=== PATIENT | male | born 1935 | race Hispanic/Latino ===

== ENCOUNTER → 2017-12-25 | Outpatient (CLI) | payer MEDICARE ==
[~2017-12-25] MED LIST: ATORVASTATIN CA40 MG PO; AVODART0.5 MG PO; GLIPIZIDE XL10 MG PO; JANUVIA100 MG PO; LOW DOSE ASPIRI81 MG PO; METFORMIN HCL500 M1 PO; PANTOPRAZOLE SO40 MG PO; QUINAPRIL HCL40 MG PO
--- NOTE | 2017-12-25 11:16 | Diagnostic Imaging Report ---
PROCEDURE: Frontal and lateral views of the chest. COMPARISON: 05/23/2013 INDICATIONS: RENAL CARCINOMA FOLLOW UP FINDINGS: Lines/tubes: None. Lungs: The lungs are well inflated and clear. There is no evidence of pneumonia or pulmonary edema. Pleura: There is no pleural effusion or pneumothorax. Heart and mediastinum: The heart and the mediastinum are normal. Bones: No acute bony abnormality. Degenerative changes of the thoracic spine and shoulder joints. IMPRESSION: 1. No acute cardiopulmonary disease. Dictated by: Jesus Rodney M.D. on 12/25/2017 at 11:18 Electronically approved by: Jesus Rodney M.D. on 12/25/2017 at 11:18
--- NOTE | 2017-12-25 13:54 | Diagnostic Imaging Report ---
EXAM: Renal Ultrasound INDICATION: \S\RENAL CANCER COMPARISON: CT dated 03/30/2016 TECHNIQUE: Transverse and longitudinal images of the kidneys and bladder were obtained. FINDINGS: Right Kidney: Size: 11 cm Echogenicity: Normal Parenchymal thickness: Normal Collecting system: No hydronephrosis Stones: None Cyst/Mass: 1.9 x 1.5 x 1.6 cm inferior pole hypoechoic/anechoic lesion. Left Kidney: Surgically absent. Bladder: Unremarkable. Prostate is enlarged measuring 5.2 x 3.8 x 4.4 cm (46.3 cc). IMPRESSION: 1. 1.9 cm right inferior pole lesion is probably a cyst. However, part of this lesion shows low internal echogenicity. Recommend further evaluation with renal mass protocol CT or MRI. 2. Enlarged prostate gland. Signed by: Dr. Jesus Rodney MD on 12/25/2017 1:51 PM
== END ==
LOC: US 10:14
PROVIDERS: ATTEND Urology
DX: C64.2 Malignant neoplasm of left kidney, except renal pelvis (principal)
CPT/HCPCS: 71046; 76770

== ENCOUNTER → 2018-07-17 | Outpatient (CLI) | payer MEDICARE ==
--- NOTE | 2018-07-17 09:59 | Diagnostic Imaging Report ---
PROCEDURE: X-RAY CHEST, TWO VIEWS COMPARISON: 12/25/2017. INDICATIONS: CHECK UP FOR KIDNEY CANCER FINDINGS: Lungs are well-inflated. No focal airspace consolidation, pleural effusion, or pneumothorax. Symmetric nodular opacities project over the mid-lower lung zones. Stable cardiomediastinal contour with mild tortuosity of the thoracic aorta. No acute osseous abnormality. Degenerative disc changes of the thoracic spine. Degenerative changes of the acromioclavicular joints. CONCLUSION: Symmetric subcentimeter nodular opacities projecting over the mid-lower lung zones likely represent nipple shadows. In the setting of prior history of renal cell carcinoma, a repeat examination with nipple markers is suggested. Dictated by: Wilfredo Montes M.D. on 07/17/2018 at 10:09 Electronically approved by: Wilfredo Montes M.D. on 07/17/2018 at 10:09
--- NOTE | 2018-07-17 10:27 | Diagnostic Imaging Report ---
PROCEDURE:US RETROPERITONEAL ( KIDNEY ). COMPARISON:None. INDICATIONS:FOLLOW UP RENAL CANCER TECHNIQUE: Meng-scale and color sonographic images of the bilateral kidneys and bladder where obtained in transverse and longitudinal planes. FINDINGS: RIGHT KIDNEY: 11.8 cm, cortex 1.8 cm Cysts: 1.7 x 1.8 x 2.0 cm cystic anechoic, partially exophytic lesion in the interpolar region (previously measured 1.9 x 1.5 x 1.6 cm). Solid masses: None Stones: None Hydronephrosis: None Echogenicity: Normal LEFT KIDNEY: Absent. No echogenic tissue is noted in the left renal fossa. Bladder: No focal lesions. Right ureteral jet is identified. Prostate: 5.7 x 3.9 x 4.8 cm (estimated volume 57.6 mL). CONCLUSION: 1. Status post left nephrectomy, without sonographic evidence of residual or recurrent disease. 2. Stable 2.0 cm simple appearing cyst in the right interpolar region. 3. Enlarged prostate, likely due to BPH. Ephraim Price M.D. Dictated by: Ephraim Price M.D. on 07/17/2018 at 10:37 Electronically approved by: Ephraim Price M.D. on 07/17/2018 at 10:37
== END ==
LOC: US 08:27
PROVIDERS: ATTEND Urology
DX: C64.2 Malignant neoplasm of left kidney, except renal pelvis (principal)
CPT/HCPCS: 71046; 76770

== ENCOUNTER → 2019-05-06 | Outpatient (CLI) | payer MEDICARE ==
--- NOTE | 2019-05-06 10:26 | Diagnostic Imaging Report ---
EXAM: Renal Ultrasound INDICATION: ^[id number] ^[id number] ^CYST OF KIDNEY COMPARISON: Renal ultrasound of 12/25/2017 TECHNIQUE: Transverse and longitudinal images of the kidneys and bladder were obtained. FINDINGS: Right Kidney: Length: 11.7 cm Appearance: Normal echogenicity. Collecting system: No hydronephrosis Stones: None Cyst/Mass: 1.8 x 1.6 x 1.6 right midpole partially exophytic cyst with a peripheral nodular component posteriorly associated with minimal vascularity. Left Kidney: Status post left nephrectomy Bladder: No mass or calculi. Right ureteral jet seen. Prevoid volume estimate of 172.6 cc Enlarged prostate. 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 Further evaluation is recommended with renal mass protocol CT or MRI. Signed by: Carmine Albright MD on 05/06/2019 10:23 AM
--- NOTE | 2019-05-06 14:45 | Diagnostic Imaging Report ---
EXAM: CT Chest, Abdomen and Pelvis WITHOUT intravenous contrast INDICATION: Renal malignancy COMPARISON: Renal ultrasound of earlier the same day, renal ultrasound of 07/17/2018 TECHNIQUE: The chest, abdomen and pelvis were scanned utilizing a multidetector helical scanner from the thoracic inlet to the pubic symphysis without administration of IV contrast. Coronal and sagittal reformations were obtained. IV CONTRAST: None ORAL CONTRAST: Water COMPLICATIONS: None RADIATION DOSE: Total DLP: 903.4 mGy*cm Dose modulation, iterative reconstruction, and/or weight based adjustment of the mA/kV was utilized to reduce the radiation dose to as low as reasonably achievable. FINDINGS: LINES/ TUBES: None. LUNGS AND AIRWAYS: There are innumerable bilateral pulmonary nodules. The largest of these measure up 8 mm in the left upper lobe (series 4 image 39) and up to 12 mm at the right lung apex (series 4 image 18). There is mucus plugging of a dilated left lower lobe segmental bronchus (series 4 image 82 through 97). No focal pneumonia or pulmonary edema. PLEURA: No pleural effusion. No pneumothorax. HEART AND MEDIASTINUM: Punctate calcifications in both lobes of the thyroid without focal nodule. No supraclavicular or axillary lymphadenopathy. Prominent mediastinal lymph nodes measure up to 14 x 9 mm. No hilar lymphadenopathy. The heart is not enlarged. No pericardial effusion. Diffuse atherosclerotic calcifications involve the coronary arteries and aorta. HEPATOBILIARY: No definite focal liver lesion. Cholelithiasis without CT evidence of cholecystitis. SPLEEN: No splenomegaly. PANCREAS: No focal masses or ductal dilatation. ADRENALS: No adrenal nodules. KIDNEYS/URETERS: Status post left nephrectomy. There is prominent soft tissue density in the left retroperitoneum at the surgical site of the left renal vein, which may be postoperative however local recurrent disease could also have this appearance. Approximately 2 cm partially exophytic right middle pole hypodense lesion corresponds with the renal cyst with a soft tissue nodular component seen on the renal ultrasound of earlier the same day. PELVIC ORGANS/BLADDER: Unremarkable. PERITONEUM / RETROPERITONEUM: No free air or fluid. LYMPH NODES: No lymphadenopathy. VESSELS: Diffuse atherosclerotic calcifications of the nonaneurysmal abdominal aorta and major branches. GI TRACT: Severe sigmoid diverticulosis without CT evidence of diverticulitis. No abnormal bowel wall thickening. No bowel obstruction. Normal appendix. BONES AND SOFT TISSUES: No acute osseous injury. Degenerative changes of the visualized spine. No suspicious lytic or blastic lesions. IMPRESSION: Innumerable bilateral pulmonary nodules measuring up to 8 mm on the left and 12 mm on the right, highly concerning for metastatic disease. Prominent mediastinal lymph nodes measuring up to 14 x 9 mm do not meet size criteria for lymphadenopathy but are suspicious in the setting of presumed metastatic disease. Status post left nephrectomy. Prominent soft tissue density in the left retroperitoneum at the surgical site of the left renal vein may be postoperative however local recurrent disease could also have this appearance. Approximately 2 cm partially exophytic right middle pole hypodense kidney lesion corresponds with the cyst with a soft tissue nodular component seen on the renal ultrasound of earlier the same day. This lesion remains indeterminate and follow-up imaging is recommended with contrast-enhanced renal mass protocol CT or alternatively MRI. Severe sigmoid diverticulosis without CT evidence of diverticulitis. Cholelithiasis. Diffuse atherosclerotic calcifications including of the coronary arteries. Signed by: Carmine Albright MD on 05/06/2019 2:42 PM
== END ==
LOC: US 08:27
PROVIDERS: ATTEND Urology
DX: C64.2 Malignant neoplasm of left kidney, except renal pelvis (principal); N28.1 Cyst of kidney, acquired
CPT/HCPCS: 71250; 74176; 76770

== ENCOUNTER → 2019-06-24 | Outpatient (CLI) | payer MEDICARE ==
[~2019-06-24] MED LIST changes: +FENTANYL CITRATE/PF 100MCG/2 ML INJ ONE; +LIDOCAINE HCL 1% LOCAL INJ 20 ML VIAL ONE; +MIDAZOLAM HCL 2 MG/2 ML VIAL ONE; +SODIUM CHLORIDE 0.9% 500ML 0 ML ONE
[2019-06-24 09:09] LABS: BASOPHILS # (AUTO) 0.1 (0.0-0.1); BASOPHILS % 0.8 % (0.0-1.0); EOSINOPHILS # (AUTO) 0.3 (0.0-0.4); EOSINOPHILS % 3.6 % (0.0-6.0); HEMATOCRIT 23.9 % (38.2-49.6); HEMOGLOBIN 7.7 g/dL (14.0-18.0); LYMPHOCYTES % 12.4 % (18.0-39.1); MEAN CORPUSCULAR HEMOGLOBIN 30.4 pg (28-32); MEAN CORPUSCULAR HGB CONC 32.2 g/dL (31-35); MEAN CORPUSCULAR VOLUME 94.5 fL (81-99); MONOCYTES # (AUTO) 0.5 (0.2-0.8); MONOCYTES % 6.2 % (4.4-11.3); NEUTROPHILS # (AUTO) 5.9 (2.1-6.9); NEUTROPHILS % 76.4 % (38.7-80.0); PLATELET COUNT 278 x10e3/uL (140-360); RED BLOOD COUNT 2.53 x10e6/uL (4.3-5.7); RED CELL DISTRIBUTION WIDTH 15.1 % (11.7-14.4)
[2019-06-24 09:59] LABS: INR 1.06; PROTHROMBIN TIME 14.3 seconds (11.9-14.5)
--- NOTE | 2019-06-24 13:12 | Diagnostic Imaging Report ---
Portable chest. Medical history: Post lung biopsy. Comparison study: CT guided lung biopsy dated June 24, 2019. Findings: The cardiac size is unremarkable. A 3.8 x 3.6 cm opacity is seen in the left midlung, recently biopsied. No pleural effusion or post procedure pneumothorax are seen. Impression: No post procedure pneumothorax. Signed by: Kenyon Guerra MD on 06/24/2019 1:08 PM
--- NOTE | 2019-06-24 14:42 | Diagnostic Imaging Report ---
EXAMINATION: CHEST XRAY POST PROCEDURE INDICATION: Post procedure COMPARISON: CT-guided lung biopsy and chest radiograph of earlier the same day FINDINGS: LINES/TUBES:None LUNGS:The lungs are well-inflated. Unchanged left upper lobe post biopsy changes. Remaining small pulmonary nodules seen on prior chest CT are beyond the resolution of this chest radiograph. PLEURA:No pleural effusion or pneumothorax. MEDIASTINUM:The cardiomediastinal silhouette appears unchanged in size and shape. BONES/SOFT TISSUES:No acute osseous injury. ABDOMEN:No free air under the diaphragm. IMPRESSION: No pneumothorax status post left upper lobe lung biopsy. Signed by: Carmine Albright MD on 06/24/2019 2:38 PM
--- NOTE | 2019-06-24 16:14 | Diagnostic Imaging Report ---
PROCEDURE: CT-guided left upper lobe lung biopsy Procedural Personnel Attending physician(s): Carmine Albright MD Fellow physician(s): None Resident physician(s): None Advanced practice provider(s): None Pre-procedure diagnosis: Renal malignancy, lung nodules Post-procedure diagnosis: Same Indication: Lung nodules concerning for metastatic disease Previous biopsy of same target (QCDR): No Additional clinical history: None Complications: No immediate complications. IMPRESSION: CT-guided biopsy of left upper lobe lung nodule. Plan: Specimen(s) sent for evaluation. PROCEDURE SUMMARY: - Percutaneous CT-guided fine needle aspiration biopsy - Additional procedure(s): None PROCEDURE DETAILS: Pre-procedure Reference imaging for biopsy target: Chest CT 05/06/2019 Consent: Informed consent for the procedure including risks, benefits and alternatives was obtained and time-out was performed prior to the procedure. Preparation: The site was prepared and draped using maximal sterile barrier technique including cutaneous antisepsis. Anesthesia/sedation Level of anesthesia/sedation: Moderate sedation (conscious sedation) with versed and fentanyl Anesthesia/sedation administered by: Independent trained observer under attending supervision with continuous monitoring of the patient?s level of consciousness and physiologic status Total intra-service sedation time (minutes): 45 Imaging prior to biopsy The patient was positioned supine. Initial imaging was performed using noncontrast CT. Biopsy target: - Maximal diameter (cm): 0.8 - Location: left upper lobe Other findings: None Biopsy Local anesthesia was administered. Under CT guidance, the biopsy needle was advanced to the target and biopsy was performed. Coaxial needle: 19 gauge x 10cm Core samples were feasible due to the size of the lesion. Fine needle aspiration device: 22g Chiba Fine needle size: 22g x 15cm Number of FNA specimens: 3 On-site biopsy touch preparation: Yes Needle removal The biopsy needle was removed and a sterile dressing was applied. Tract embolization: None Imaging following biopsy Immediate post-biopsy imaging was performed using noncontrast CT. Post-biopsy imaging findings: Small parenchymal hemorrhage postbiopsy. No pneumothorax. Contrast Contrast agent: None Contrast volume (mL): [address] dose length product (mGy-cm): 2788.4 Additional Details Additional description of procedure: None Equipment details: None Specimens removed: Biopsy samples as detailed above Estimated blood loss (mL): Less than 10 Standardized report: [id number] Attestation Signer name: Carmine Albright MD I attest that I was present for the entire procedure. I reviewed the stored images and agree with the report as written. Signed by: Carmine Albright MD on 06/24/2019 4:11 PM
== END ==
LOC: CT 08:35
PROVIDERS: ATTEND Urology
DX: C64.2 Malignant neoplasm of left kidney, except renal pelvis (principal)
CPT/HCPCS: 10009; 32405; 36415; 71045; 85025; 85610; 85730; 88172; 88173; J2001; J2250; J3010; 88305; 88342; 99152; 99153; J7040

== ENCOUNTER 2019-09-13 14:16 | Observation (INO) | payer MEDICARE, OTHER ==
[~2019-09-13] VITALS: Ht 177.8 cm; Wt 78.0 kg
[~2019-09-13 14:16] MED LIST changes: +CALCITRIOL0.25 MCG PO; -FENTANYL CITRATE/PF 100MCG/2 ML INJ ONE; +FINASTERIDE5 MG PO; +FLOMAX0.4 MG PO; +FUROSEMIDE40 MG PO; -LIDOCAINE HCL 1% LOCAL INJ 20 ML VIAL ONE; -MIDAZOLAM HCL 2 MG/2 ML VIAL ONE; +NEXAVAR200 MG PO; +NIFEDIPINE10 MG PO; +SODIUM BICARBO650 MG PO; -SODIUM CHLORIDE 0.9% 500ML 0 ML ONE; +VELTASSA8.4 GM PO; +VICTOZA 3-0.6 MG/0.1 SQ
[2019-09-13] MEDS ORDERED: PANTOPRAZOLE 40 MG 10ML VIAL IV STA (15:26)
[2019-09-13 16:17] LABS: BASOPHILS % 0.7 % (0.0-1.0); EOSINOPHILS # (AUTO) 0.1 (0.0-0.4); LYMPHOCYTES # (AUTO) 0.5 (1.0-3.2); LYMPHOCYTES % 7.9 % (18.0-39.1); MEAN CORPUSCULAR HEMOGLOBIN 30.3 pg (28-32); MEAN CORPUSCULAR HGB CONC 31.3 g/dL (31-35); MEAN CORPUSCULAR VOLUME 96.6 fL (81-99); MONOCYTES # (AUTO) 0.4 (0.2-0.8); MONOCYTES % 6.7 % (4.4-11.3); NEUTROPHILS # (AUTO) 5.1 (2.1-6.9); PLATELET COUNT 307 x10e3/uL (140-360); RED BLOOD COUNT 2.08 x10e6/uL (4.3-5.7); RED CELL DISTRIBUTION WIDTH 19.5 % (11.7-14.4)
[2019-09-13 16:19] LABS: HEMATOCRIT 20.1 % (38.2-49.6); HEMOGLOBIN 6.3 g/dL (14.0-18.0)
[2019-09-13 16:24] LABS: INR 1.07; PROTHROMBIN TIME 14.6 seconds (11.9-14.5)
[2019-09-13 16:25] LABS: PARTIAL THROMBOPLASTIN TIME 40.4 seconds (23.8-35.5)
[2019-09-13] MEDS ORDERED: SODIUM CHLORIDE 0.9% 250ML 250 ML IV ONE (16:30)
[2019-09-13 16:33] LABS: ALBUMIN 2.2 g/dL (3.5-5.0); ALBUMIN/GLOBULIN RATIO 0.5 (0.8-2.0); ANION GAP 18.6 mmol/L (8-16); CREATININE, SERUM 2.41 mg/dL (0.72-1.25); POTASSIUM 3.6 mmol/L (3.5-5.1)
[2019-09-13] MEDS ORDERED: SODIUM CHLORIDE 0.9% 1000ML 1,000 ML IV SCH (18:22)
[2019-09-13] MEDS ORDERED: ONDANSETRON HCL INJ 2MG/ML 2ML 2 MG/ML VIAL IV PRN (18:30)
[2019-09-13 21:32] VITALS: BP_SYST 133; BP_SYST 153; BP_DIAS 61; BP_DIAS 67
[2019-09-13] MEDS ORDERED: SODIUM CHLORIDE 0.9% 250ML 250 ML ONE (22:27)
[2019-09-14] VITALS: BP 143/66
[2019-09-14 04:00] VITALS: BP 136/66
[2019-09-14 06:54] LABS: BASOPHILS # (AUTO) 0.1 (0.0-0.1); BASOPHILS % 0.9 % (0.0-1.0); EOSINOPHILS # (AUTO) 0.2 (0.0-0.4); EOSINOPHILS % 2.3 % (0.0-6.0); HEMATOCRIT 23.5 % (38.2-49.6); HEMOGLOBIN 7.3 g/dL (14.0-18.0); LYMPHOCYTES # (AUTO) 0.8 (1.0-3.2); LYMPHOCYTES % 11.8 % (18.0-39.1); MEAN CORPUSCULAR HEMOGLOBIN 28.6 pg (28-32); MEAN CORPUSCULAR HGB CONC 31.1 g/dL (31-35); MEAN CORPUSCULAR VOLUME 92.2 fL (81-99); MONOCYTES # (AUTO) 0.5 (0.2-0.8); MONOCYTES % 7.7 % (4.4-11.3); NEUTROPHILS # (AUTO) 5.1 (2.1-6.9); NEUTROPHILS % 76.5 % (38.7-80.0); PLATELET COUNT 257 x10e3/uL (140-360); RED BLOOD COUNT 2.55 x10e6/uL (4.3-5.7); RED CELL DISTRIBUTION WIDTH 20.1 % (11.7-14.4)
[2019-09-14 07:20] LABS: ALBUMIN 2.1 g/dL (3.5-5.0); ALBUMIN/GLOBULIN RATIO 0.5 (0.8-2.0); CALCIUM 7.7 mg/dL (8.4-10.2); CREATININE, SERUM 3.09 mg/dL (0.72-1.25)
[2019-09-14 07:57] LABS: ANION GAP 13.8 mmol/L (8-16)
[2019-09-14 08:05] LABS: POTASSIUM 2.8 mmol/L (3.5-5.1)
[2019-09-14 08:22] VITALS: BP 113/64
[2019-09-14 08:32] VITALS: BP 121/65
[2019-09-14] MEDS ORDERED: POTASSIUM CHLORIDE 20 MEQ TAB CR PO NR ×2 (10:15→12:00)
[2019-09-14 10:16] LABS: HEMATOCRIT 25.7 % (38.2-49.6); HEMOGLOBIN 8.2 g/dL (14.0-18.0)
[2019-09-14 12:03] VITALS: BP 130/72
[2019-09-14 15:42] LABS: ANION GAP 15.5 mmol/L (8-16); CALCIUM 7.8 mg/dL (8.4-10.2); CREATININE, SERUM 3.56 mg/dL (0.72-1.25); POTASSIUM 3.5 mmol/L (3.5-5.1)
[2019-09-14 17:06] VITALS: BP 137/74
[2019-09-14 18:59] LABS: % IRON SATURATION 24 % (15-50); IRON 34 ug/dL (65-175); TOTAL IRON BINDING CAPACITY 143 ug/dL (261-478); TRANSFERRIN 102 mg/dL (174-364)
--- NOTE | 2019-09-14 19:41 | History and Physical ---
PCP: Dr. Candido Celis. CHIEF COMPLAINT: Anemia. HISTORY OF PRESENT ILLNESS: This is an 84-year-old male with past medical history of hypertension, high cholesterol, diabetes, ESRD, lung cancer, and BPH, presented to the ER with complaints of fatigue due to anemia. He reports, was in dialysis yesterday and was noted to have low hemoglobin, so was advised to come to the ER for further workup. In the ER, his hemoglobin was 6.3. He denies any chest pain, shortness of breath, dizziness, hematemesis, abdominal pain, or melena. He reports he had similar episode about 2 weeks ago and had received blood transfusions and endoscopy done, which was unremarkable per the patient. He is admitted for further evaluation. PAST MEDICAL HISTORY: 1. Lung cancer, currently on treatment. 2. Hypertension. 3. High cholesterol. 4. Diabetes. 5. ESRD, on dialysis, Monday, Monday, and Monday. 6. BPH. PAST SURGICAL HISTORY: He reports nephrectomy. FAMILY MEDICAL HISTORY: Mother of liver cancer. Father had heart failure. SOCIAL HISTORY: He quit smoking 20 years ago and denies any alcohol or illicit drug use. ALLERGIES: HE HAS NO KNOWN DRUG ALLERGIES. REVIEW OF SYSTEMS: GENERAL: Fatigue. HEENT: No head trauma. LUNGS: No shortness of breath or cough. CARDIOVASCULAR: No chest pain. GI: No nausea, vomiting, melena, or hematemesis. NEUROLOGIC: Alert and oriented. No dizziness. MUSCULOSKELETAL: No edema. SKIN: No rash. PHYSICAL EXAMINATION: VITAL SIGNS: Temperature 97.2, pulse is 89, respirations 20, blood pressure 130/72, and pulse ox is 99% on room air. GENERAL: No acute distress. HEENT: Normocephalic and atraumatic. NECK: Supple and midline. LUNGS: Clear to auscultation. CARDIOVASCULAR: Regular rate and rhythm. GI: Soft and nontender. NEUROLOGIC: Alert, awake, and oriented x3. MUSCULOSKELETAL: Moves all extremities. SKIN: Dry. PSYCH: Calm. LABORATORY DATA: WBC 6.09, hemoglobin 6.3, now 8.2, hematocrit 20.1, now 25.7, and platelet 307. Sodium 141, potassium 3.6, BUN is 12, and creatinine is 2.4. AST 60, then 43, ALT 17 and then 15. Protein 6.9. PT 14.6, INR 1.07, and APTT 40.4. IMAGING: None. IMPRESSION: 1. [id number] anemia. Hemoglobin is 6.3 upon arrival. Transfused total of 2 units of PRBCs. Hemoglobin is 8.2. Had EGD 2 weeks ago, which was negative. We will check iron level and replace as needed. 2. Hypertension. We will resume home medication. 3. High cholesterol. On statin. 4. Diabetes. Sliding scale insulin. 5. End-stage renal disease, HD Monday, Monday, and Monday; had dialysis yesterday. 6. Lung cancer. Aware and following up with his oncologist. 7. Benign prostatic hypertrophy. On Flomax. 8. Hypokalemia. Replaced. 9. Deep vein thrombosis prophylaxis. SCDs. No chemical anticoagulation due to anemia. PLAN: To check iron levels and replace as needed. We will discharge home if continues to do well. Dictated by ROBLES Sanchez Charles Frederick MD MY/MODL /[id number]
[2019-09-14] MEDS ORDERED: SODIUM BICARBONATE 650 MG TAB PO SCH (21:00)
[2019-09-14] MEDS ORDERED: TAMSULOSIN HCL 0.4 MG CAP PO SCH (21:00)
[2019-09-14] MEDS ORDERED: NIFEDIPINE CR 30 MG TAB PO SCH (21:00)
--- NOTE | 2019-09-15 03:22 | Discharge Summary ---
PRIMARY CARE PROVIDER: Dr. Candido Celis FINAL DIAGNOSES: 1. Anemia. 2. Hypertension. 3. High cholesterol. 4. Diabetes type 2. 5. End-stage renal disease, on dialysis Monday, Monday, and Monday. 6. Lung cancer. 7. Benign prostatic hyperplasia. AUDIO EXPERIENCE EXPERT: None. PROCEDURE: Transfusion of 2 units of PRBCs, history per HPI. HOSPITAL COURSE: This is an 84-year-old male with past medical history of hypertension, high cholesterol, diabetes, ESRD, lung cancer, and BPH, presented due to anemia. Hemoglobin was 6.3 upon arrival. He was transfused 2 units of PRBCs. Had recent GI workup, but two weeks ago, EGD was negative. Hemoglobin post transfusion was 7.4 than 8.2 symptomatic. No chest pain, shortness of breath or dizziness. Vital signs stable, no complaints of abdominal pain or melena. We will discharge home to follow up with PCP in 1 to 2 weeks. PHYSICAL EXAMINATION: VITAL SIGNS: Temperature 97.2, pulse is 89, respirations 20, blood pressure 130/72, pulse ox 99% on room air. GENERAL: In no acute distress. HEENT: Normocephalic, atraumatic. NECK: Supple. LUNGS: Clear to auscultation. CARDIOVASCULAR: Regular rate and rhythm. GI: Soft and nontender. NEUROLOGIC: Alert, awake, and oriented x3. MUSCULOSKELETAL: Moves all extremities. SKIN: Dry. PSYCH: Calm. CONDITION AT DISCHARGE: Improved and stable. DISCHARGE MEDICATIONS: See medication reconciliation list. FOLLOWUP: Follow up with PCP and Nephrology next week. TIME SPENT: Total time spent 32 minutes. Dictated by ROBLES Sanchez Charles Frederick MD MY/MODL /[id number] cc: Candido Celis
[2019-09-15] MEDS ORDERED: PANTOPRAZOLE SOD 40 MG TABEC PO SCH (09:00)
[2019-09-15] MEDS ORDERED: METFORMIN HCL 500 MG TAB CR PO SCH (09:00)
== END 2019-09-14 18:27 | disposition home or self-care (01) ==
LOC: ER 14:16 → ERHOLD 18:27 → MED/SURG2 21:37
PROVIDERS: ADMIT Internal Medicine; ATTEND Internal Medicine
DX: D64.9 Anemia, unspecified (principal); I12.0 Hypertensive chronic kidney disease with stage 5 chronic kidney disease or end stage renal disease; E11.22 Type 2 diabetes mellitus with diabetic chronic kidney disease; N18.6 End stage renal disease; Z99.2 Dependence on renal dialysis; Z90.5 Acquired absence of kidney; Z85.528 Personal history of other malignant neoplasm of kidney; Z85.118 Personal history of other malignant neoplasm of bronchus and lung; E78.00 Pure hypercholesterolemia, unspecified; N40.0 Benign prostatic hyperplasia without lower urinary tract symptoms; E87.6 Hypokalemia; Z79.82 Long term (current) use of aspirin; Z79.84 Long term (current) use of oral hypoglycemic drugs
CPT/HCPCS: 36415; 80048; 80053; 82948; 83540; 84466; 85014; 85018; 85025; 85610; 85730; 86850; 86900; 86920; 99284; G0378; J7050; P9016

== ENCOUNTER 2019-09-20 19:29 | Inpatient (IN) | payer MEDICARE, OTHER ==
[~2019-09-20] VITALS: Ht 177.8 cm; Wt 76.7 kg
[2019-09-20] MEDS ORDERED: DIATRIZOATE MEGL/DIATRIZOA SOD 30 ML BTL PO ONE (20:29)
[2019-09-20] MEDS ORDERED: ACETAMINOPHEN 325 MG TAB PO ONE (20:30)
[2019-09-20 20:55] LABS: BASOPHILS % 0.3 % (0.0-1.0); EOSINOPHILS % 0.2 % (0.0-6.0); LYMPHOCYTES % 7.4 % (18.0-39.1); MEAN CORPUSCULAR HEMOGLOBIN 28.5 pg (28-32); MEAN CORPUSCULAR HGB CONC 30.7 g/dL (31-35); MEAN CORPUSCULAR VOLUME 92.7 fL (81-99); MONOCYTES # (AUTO) 0.9 (0.2-0.8); MONOCYTES % 6.8 % (4.4-11.3); NEUTROPHILS # (AUTO) 11.2 (2.1-6.9); NEUTROPHILS % 84.2 % (38.7-80.0); PLATELET COUNT 263 x10e3/uL (140-360); RED BLOOD COUNT 1.79 x10e6/uL (4.3-5.7)
--- NOTE | 2019-09-20 20:55 | NUR ---
ER MD AND PRIMARY RN NOTIFIED AND AWARE OF CRITICAL LAB VALUE: HGB 5.1, HCT 16.6.
[2019-09-20 20:56] LABS: HEMATOCRIT 16.6 % (38.2-49.6); HEMOGLOBIN 5.1 g/dL (14.0-18.0)
[2019-09-20 20:59] LABS: INR 1.08; PROTHROMBIN TIME 14.7 seconds (11.9-14.5)
[2019-09-20 21:09] LABS: ALBUMIN 2.2 g/dL (3.5-5.0); ALBUMIN/GLOBULIN RATIO 0.5 (0.8-2.0); ANION GAP 17.2 mmol/L (8-16); CALCIUM 8.1 mg/dL (8.4-10.2); CREATININE, SERUM 5.57 mg/dL (0.72-1.25); POTASSIUM 3.2 mmol/L (3.5-5.1)
[2019-09-20 21:10] LABS: AMYLASE 50 U/L (25-125); LIPASE 11 U/L (8-78)
[2019-09-20 21:16] LABS: CREATINE KINASE MB 1.7 ng/mL (0-5.0)
--- NOTE | 2019-09-20 22:43 | Diagnostic Imaging Report ---
EXAMINATION: CHEST SINGLE (PORTABLE) INDICATION: Short of breath COMPARISON: Chest x-ray 06/24/2019 FINDINGS: TUBES and LINES: Right IJ central venous catheter, tip in the low SVC. LUNGS/PLEURA: Bibasilar haziness. Prominent pulmonary vasculature. Mild prominence of interstitial pulmonary lung markings in the lung bases. Lungs are clear. No consolidations. No pneumothorax. HEART AND MEDIASTINUM: The cardiomediastinal silhouette is unremarkable. BONES AND SOFT TISSUES: Degenerative changes in the spine and shoulders. Soft tissues are unremarkable. UPPER ABDOMEN: No free air under the diaphragm. IMPRESSION: Bibasilar haziness can be due to atelectasis, pleural effusion or pneumonia. Pulmonary vascular congestion. Mild pulmonary interstitial edema is possible. Signed by: Samuel Foote DO on 09/20/2019 10:40 PM
[2019-09-20] MEDS ORDERED: SODIUM CHLORIDE 0.9% 250ML 250 ML IV ONE (22:45)
--- NOTE | 2019-09-20 23:15 | Diagnostic Imaging Report ---
EXAM: CT Abdomen and Pelvis WITHOUT contrast INDICATION: Diarrhea, abdominal pain , short of breath, weak, nausea COMPARISON: Chest abdomen pelvis CT 05/06/2019. TECHNIQUE: Abdomen and pelvis were scanned utilizing a multidetector helical scanner from the lung base to the pubic symphysis without administration of IV contrast. Absence of intravenous contrast decreases sensitivity for detection of focal lesions and vascular pathology. Coronal and sagittal reformations were obtained. Routine protocol was performed. IV CONTRAST: None ORAL CONTRAST: Gastrografin COMPLICATIONS: None RADIATION DOSE: Total DLP: 649 mGy*cm Estimated effective dose: (DLP x 0.015 x size factor) mSv CTDIvol has been reviewed. It is below the limits set by the Radiation Protocol Committee (RPC). Dose modulation, iterative reconstruction, and/or weight based adjustment of the mA/kV was utilized to reduce the radiation dose to as low as reasonably achievable. FINDINGS: LINES and TUBES: None. LOWER THORAX: Multiple subcentimeter solid nodules in the bilateral lower lungs. Triple vessel coronary artery calcific atherosclerosis. Low density blood flow within the left ventricular cavity. A subcarinal lymph node now measures 2 cm, was 1.3 cm on 05/06/2019. HEPATOBILIARY: No focal hepatic lesions. No biliary ductal dilation. GALLBLADDER: Tiny layering stones in the gallbladder lumen. No wall thickening. SPLEEN: No splenomegaly. PANCREAS: No focal masses or ductal dilatation. ADRENALS: No adrenal nodules KIDNEYS/URETERS: Right kidney: No hydronephrosis. No cystic or solid mass lesions. No stones. Left kidney removed. Extensive nodularity, stranding, and fluid in left nephrectomy bed as described below. GI TRACT: No abnormal distention, wall thickening, or evidence of bowel obstruction. There are diverticula within the colon without evidence of diverticulitis. Appendix is not clearly identified. There is however no fat stranding or adenopathy in the right lower quadrant to suggest appendicitis. PELVIC ORGANS/BLADDER: Unremarkable. LYMPH NODES: No lymphadenopathy. VESSELS: Unremarkable. PERITONEUM / RETROPERITONEUM: Extensive thick dense soft tissue stranding and nodularity in the left retroperitoneum extends from beneath the diaphragm to the pelvis. Large volume ascites measures greater than fluid density. BONES: Advanced degenerative changes in the spine. SOFT TISSUES: Mild anasarca. IMPRESSION: 1. Findings compatible with progression of widespread metastatic disease. Findings in the left retroperitoneum are compatible with hemorrhage and retroperitoneal carcinomatosis. Large volume dense ascites is concerning for malignant hemoperitoneum, as there is soft tissue dense nodularity along the right hepatic margin and the ascitic fluid is greater than simple fluid density. Worsening pulmonary metastatic disease and mediastinal adenopathy. 2. CT findings of anemia. 3. Advanced triple vessel coronary artery calcific atherosclerosis. Signed by: Samuel Foote DO on 09/20/2019 11:12 PM
[2019-09-20] MEDS: SODIUM CHLORIDE FLUSH 10 ML SYR INJ PRN (23:45)
[2019-09-21] VITALS (19 sets, daily range): BP systolic 132–159; BP diastolic 54–76
[2019-09-21] MEDS: SODIUM CHLORIDE FLUSH 10 ML SYR INJ PRN
[2019-09-21 08:57] LABS: HEMATOCRIT 23.4 % (38.2-49.6); HEMOGLOBIN 7.5 g/dL (14.0-18.0)
[2019-09-21] MEDS: SODIUM BICARBONATE 650 MG TAB PO SCH ×2 (09:00→20:22)
[2019-09-21] MEDS: PANTOPRAZOLE SOD 40 MG TABEC PO SCH (09:00)
[2019-09-21] MEDS ORDERED: DOCUSATE SODIUM 100 MG CAP PO SCH (09:00)
[2019-09-21] MEDS: DUTASTERIDE 0.5 MG CAP PO SCH (09:00)
[2019-09-21] MEDS ORDERED: MAGNESIUM HYDROXIDE 30 ML UDC PO PRN (09:00)
[2019-09-21] MEDS ORDERED: CALCITRIOL 0.25 MCG CAP PO SCH (09:00)
[2019-09-21 09:14] LABS: ANION GAP 17.6 mmol/L (8-16); BASOPHILS % 0.3 % (0.0-1.0); CALCIUM 7.9 mg/dL (8.4-10.2); CREATININE, SERUM 5.75 mg/dL (0.72-1.25); EOSINOPHILS # (AUTO) 0.1 (0.0-0.4); EOSINOPHILS % 0.5 % (0.0-6.0); LYMPHOCYTES # (AUTO) 0.9 (1.0-3.2); LYMPHOCYTES % 7.5 % (18.0-39.1); MEAN CORPUSCULAR HEMOGLOBIN 29.1 pg (28-32); MEAN CORPUSCULAR HGB CONC 31.8 g/dL (31-35); MEAN CORPUSCULAR VOLUME 91.7 fL (81-99); MONOCYTES # (AUTO) 0.7 (0.2-0.8); MONOCYTES % 5.8 % (4.4-11.3); NEUTROPHILS # (AUTO) 10.2 (2.1-6.9); NEUTROPHILS % 85.2 % (38.7-80.0); PLATELET COUNT 226 x10e3/uL (140-360); POTASSIUM 3.6 mmol/L (3.5-5.1); RED BLOOD COUNT 2.54 x10e6/uL (4.3-5.7); RED CELL DISTRIBUTION WIDTH 17.3 % (11.7-14.4)
[2019-09-21 09:28] LABS: CLARITY,URINE CLEAR (CLEAR); COLOR,URINE YELLOW (YELLOW); KETONES,URINE NEGATIVE (NEGATIVE); LEUKOCYTE ESTERASE ,URINE NEGATIVE (NEGATIVE); NITRITE,URINE NEGATIVE (NEGATIVE); PROTEIN,URINE DIPSTICK 3+ (NEGATIVE); URINE UROBILINOGEN 0.2 mg/dL (0.2 - 1)
[2019-09-21 09:29] LABS: BILIRUBIN,URINE NEGATIVE (NEGATIVE)
[2019-09-21 09:40] LABS: BACTERIA,URINE FEW /HPF; EPITHELIAL CELLS,URINE FEW /LPF; RBC,URINE 0-5 /HPF (0-5); WBC,URINE (MAN) 0-5 /HPF (0-5)
[2019-09-21] MEDS ORDERED: SODIUM CHLORIDE 0.9% 250ML 250 ML IV ONE (11:15)
--- NOTE | 2019-09-21 11:31 | NUR ---
Nutrition Screen Note RD Recommendation for Physician: Continue diet as ordered Plan of Care: RD following monitoring for tolerance and adequacy Nutrition reason for involvement: Primary diagnosis of ESRD/lung cancer Primary Diagnose(s):ESRD, Carcinoma of retroperitoneum, HD PMH: lung cancer, HTN, High cholesterol, T2DM, Nephrectomy, renal cancer Ht:70 in Wt:172 lbs BMI:24.7 kg/m2 IBW: [address] Assessment: Initial encounter with patient. Diet Hx: pt has no known food allergies. Pt with C/O of dry mouth and dysgeusia probably due to medications, and decreased appetite. Pt usually drinks Nepro once a day. RD discussed adding Nepro once daily with attending physician while he was rounding and he gave his approval. Pt with C/O diarrhea and some nausea. Pt is dentate and denies any difficulty chewing or swallowing with no significant wt changes. Pt is able to feed himself. Current Diet: 2000 Calorie ADA Malnutrition Evaluation (09/21/2019) The patient does not meet criteria for a specified degree of malnutrition at this time. Will re-evaluate at follow-up as appropriate. Diet Education Needs Assessment: Diet education not desired by Pt at this time. Nutrition Care Level: samantha Husain RD, LD, CNSC
[2019-09-21] MEDS ORDERED: DIPHENHYDRAMINE HCL INJ 25 MG in SODIUM CHLORIDE 0.9% 50ML 50 ML IV ONE (12:00)
[2019-09-21] MEDS ORDERED: FAMOTIDINE INJ 20 MG in SODIUM CHLORIDE 0.9% 50ML 50 ML IV ONE (12:00)
[2019-09-21] MEDS ORDERED: DEXAMETHASONE PHOS 10MG INJ 20 MG in SODIUM CHLORIDE 0.9% 50ML 50 ML IV ONE (12:30)
[2019-09-21] MEDS ORDERED: IRON DEXTRAN INJ 50 MG in SODIUM CHLORIDE 0.9% 100 ML IV ONE (13:00)
--- NOTE | 2019-09-21 14:24 | Diagnostic Imaging Report ---
Tagged-RBC GI Bleed Study Clinical information: 84-year-old male with severe anemia. Concern that patient may be bleeding into peritoneal cavity. Discussion: The patient's own red blood cells were labeled with 27.5 mCi of technetium-99m pertechnetate using the in vitro method (UltraTag). Dynamic images of the abdomen were obtained through 60 minutes. Extensive collateral vessels are seen throughout the abdomen, however, no tracer is seen to transit from the blood pool into the gastrointestinal lumen or into the peritoneal cavity. Impression: No scan evidence of a gastrointestinal bleed or of bleeding into the peritoneal cavity at this time. Signed by: Dr. Blank Alexandra M.D. on 09/21/2019 2:21 PM
--- NOTE | 2019-09-21 15:59 | Consultation ---
DATE OF CONSULTATION: Critical Care Note HISTORY OF PRESENT ILLNESS: The patient of Dr. Charles Frederick, Dr. Celis, Dr. Shah, Dr. Kyle, Dr. Manjarrez, Dr. Mcneil. 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 History of peptic ulcer disease in the past. He had an episode of bloody stool a year ago. He has a history of hypertension, diabetes, end-stage renal disease, on dialysis since July of 2019. ALLERGIES: NO KNOWN ALLERGIES. SOCIAL HISTORY: Drank socially. Smoked in the past. He has had a left nephrectomy in 2017 at [facility]. 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 FAMILY HISTORY: Positive for liver cancer in mother. Coronary artery disease, strokes and diabetes. Born in [place], [place]. PHYSICAL EXAMINATION: VITAL SIGNS: Elderly white male, looking stated age. HEAD: Normocephalic, atraumatic. NECK: Trachea midline. LUNGS: Clear. HEART: Regular rhythm. ABDOMEN: There is apparent ascites. EXTREMITIES: Nonedematous. AV fistula in left upper extremity. LABORATORY DATA: Hemoglobin was 5.1. 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 PLAN: Oncology opinion, transfusion. Continue red cell scan. [place] is grim. We will call to Dr. Frederick and Dr. Manjarrez. Vital signs have now improved, he was shocky on admission, now 98, respirations 18, blood pressure 141/59. At midnight, his blood pressure was 100/50, improved with fluid and 2 units of red cells. We will repeat hemoglobin and coagulation screening. Thank you for this kind referral. MD LUI Cerda/MODL /[id number]
[2019-09-21 16:24] LABS: BASOPHILS % 0.2 % (0.0-1.0); EOSINOPHILS % 0.2 % (0.0-6.0); HEMATOCRIT 24.7 % (38.2-49.6); HEMOGLOBIN 7.8 g/dL (14.0-18.0); LYMPHOCYTES # (AUTO) 0.9 (1.0-3.2); LYMPHOCYTES % 7.6 % (18.0-39.1); MEAN CORPUSCULAR HEMOGLOBIN 29.2 pg (28-32); MEAN CORPUSCULAR HGB CONC 31.6 g/dL (31-35); MEAN CORPUSCULAR VOLUME 92.5 fL (81-99); MONOCYTES # (AUTO) 0.6 (0.2-0.8); MONOCYTES % 4.9 % (4.4-11.3); NEUTROPHILS # (AUTO) 10.8 (2.1-6.9); NEUTROPHILS % 86.5 % (38.7-80.0); PLATELET COUNT 234 x10e3/uL (140-360); RED BLOOD COUNT 2.67 x10e6/uL (4.3-5.7); RED CELL DISTRIBUTION WIDTH 17.6 % (11.7-14.4)
[2019-09-21] MEDS ORDERED: HEPARIN SOD (PORCINE) 1000 UNIT/ML SDV ONE (18:40)
[2019-09-21] MEDS ORDERED: SODIUM CHLORIDE 0.9% 1000ML 2,000 ML ONE (18:41)
[2019-09-21] MEDS ORDERED: SODIUM CHLORIDE 0.9% 250ML 250 ML ONE (20:11)
[2019-09-21] MEDS: TAMSULOSIN HCL 0.4 MG CAP PO SCH (20:21)
[2019-09-22] VITALS (14 sets, daily range): BP systolic 88–141; BP diastolic 51–78
[2019-09-22] MEDS: IRON DEXTRAN INJ 500 MG in SODIUM CHLORIDE 0.9% 500ML 500 ML IV PRN ×2 (06:09→13:00)
[2019-09-22 06:30] LABS: BASOPHILS % 0.1 % (0.0-1.0); HEMATOCRIT 29.4 % (38.2-49.6); HEMOGLOBIN 9.4 g/dL (14.0-18.0); LYMPHOCYTES # (AUTO) 0.4 (1.0-3.2); LYMPHOCYTES % 4.5 % (18.0-39.1); MEAN CORPUSCULAR HEMOGLOBIN 29.3 pg (28-32); MEAN CORPUSCULAR VOLUME 91.6 fL (81-99); MONOCYTES # (AUTO) 0.2 (0.2-0.8); MONOCYTES % 1.6 % (4.4-11.3); NEUTROPHILS % 93.4 % (38.7-80.0); PLATELET COUNT 223 x10e3/uL (140-360); RED BLOOD COUNT 3.21 x10e6/uL (4.3-5.7); RED CELL DISTRIBUTION WIDTH 16.6 % (11.7-14.4)
[2019-09-22 06:34] LABS: INR 1.05; PROTHROMBIN TIME 14.3 seconds (11.9-14.5)
[2019-09-22 06:35] LABS: PARTIAL THROMBOPLASTIN TIME 49.5 seconds (23.8-35.5)
[2019-09-22 06:47] LABS: ALBUMIN/GLOBULIN RATIO 0.5 (0.8-2.0); ANION GAP 15.6 mmol/L (8-16); CALCIUM 7.9 mg/dL (8.4-10.2); CREATININE, SERUM 3.39 mg/dL (0.72-1.25); POTASSIUM 3.6 mmol/L (3.5-5.1)
[2019-09-22] MEDS: PANTOPRAZOLE SOD 40 MG TABEC PO SCH (08:30)
[2019-09-22] MEDS: SODIUM BICARBONATE 650 MG TAB PO SCH ×2 (08:30→21:28)
[2019-09-22] MEDS: DUTASTERIDE 0.5 MG CAP PO SCH (08:30)
[2019-09-22] MEDS: CALCITRIOL 0.25 MCG CAP PO SCH (09:41)
[2019-09-22] MEDS ORDERED: LOPERAMIDE2 MG PO (13:56)
[2019-09-22] MEDS ORDERED: LOPERAMIDE HCL 2 MG CAP PO PRN (14:00)
[2019-09-22] MEDS: TAMSULOSIN HCL 0.4 MG CAP PO SCH (21:28)
[2019-09-23] VITALS (8 sets, daily range): BP systolic 101–123; BP diastolic 55–60
[2019-09-23 05:54] LABS: BASOPHILS % 0.2 % (0.0-1.0); EOSINOPHILS % 0.4 % (0.0-6.0); HEMATOCRIT 26.7 % (38.2-49.6); HEMOGLOBIN 8.6 g/dL (14.0-18.0); LYMPHOCYTES % 10.5 % (18.0-39.1); MEAN CORPUSCULAR HEMOGLOBIN 29.8 pg (28-32); MEAN CORPUSCULAR HGB CONC 32.2 g/dL (31-35); MEAN CORPUSCULAR VOLUME 92.4 fL (81-99); MONOCYTES # (AUTO) 0.6 (0.2-0.8); MONOCYTES % 6.4 % (4.4-11.3); NEUTROPHILS # (AUTO) 7.4 (2.1-6.9); NEUTROPHILS % 82.1 % (38.7-80.0); PLATELET COUNT 223 x10e3/uL (140-360); RED BLOOD COUNT 2.89 x10e6/uL (4.3-5.7); RED CELL DISTRIBUTION WIDTH 17.2 % (11.7-14.4)
[2019-09-23 06:53] LABS: ANION GAP 14.4 mmol/L (8-16); CALCIUM 7.7 mg/dL (8.4-10.2); CREATININE, SERUM 4.47 mg/dL (0.72-1.25); MAGNESIUM 1.8 MG/DL (1.3-2.1); POTASSIUM 3.4 mmol/L (3.5-5.1)
[2019-09-23] MEDS: PANTOPRAZOLE SOD 40 MG TABEC PO SCH (07:41)
[2019-09-23] MEDS: CALCITRIOL 0.25 MCG CAP PO SCH (08:10)
[2019-09-23] MEDS: SODIUM BICARBONATE 650 MG TAB PO SCH ×2 (08:10→22:10)
[2019-09-23] MEDS: DUTASTERIDE 0.5 MG CAP PO SCH (08:10)
--- NOTE | 2019-09-23 11:45 | Progress Note ---
DATE: 09/23/2019 CONSULTANTS: 1. Dr. Jaylen Mcneil with Surgery. 2. Dr. Lesia Manjarrez with Hematology. 3. Dr. Chris Shah with Nephrology. 4. Dr. Craig with Urology. 5. Dr. Fontaine with [employer]. CHIEF COMPLAINT: Abdominal pain with ESRD and renal cancer. SUBJECTIVE: The patient is resting in bed with no acute disease. Remains in ICU, pending transfer out of ICU. He reports he is eating well, abdominal pain, resolved, no chest pain, shortness of breath, nausea or vomiting. OBJECTIVE: VITAL SIGNS: Temperature 96.4, pulse is 89, respirations 16, blood pressure 115/58, pulse ox is 97% on room air. GENERAL: No acute distress. HEENT: Normocephalic, atraumatic. NECK: Supple. LUNGS: Clear to auscultation. CARDIOVASCULAR: Regular rate and rhythm. GI: Soft, nontender, nondistended. NEURO: Alert, awake, oriented x3. MUSCULOSKELETAL: Moves all extremities. SKIN: Dry and intact. PSYCH: Calm. LABORATORY DATA: WBC 9.0, hemoglobin 8.6, hematocrit 26.7, and platelet is 223. Sodium 138, potassium 3.4, BUN is 36, creatinine is 4.47, estimated GFR is 13, calcium is 7.7. IMPRESSION: 1. Acute blood loss anemia due to renal cell carcinoma with metastasis to peritoneum. Status post blood transfusion. Hematology on the case. GI bleed scan was negative. Hemoglobin is stable at 8.6 today. We will continue to monitor closely. 2. End-stage renal disease. Hemodialysis per Nephrology. Monday, Monday, and Monday. 3. Diabetes. Diet controlled. 4. Benign prostatic hyperplasia. Continue Flomax. 5. History of renal cancer. Continue Avodart per oncologist. 6. Deep venous thrombosis prophylaxis. No chemical anticoagulation due to anemia. PLAN: Plan is to continue monitoring H and H and transfer out of ICU. Dictated by ROBLES Sanchez Charles Frederick MD MY/MODL /[id number]
--- NOTE | 2019-09-23 11:55 | NUR ---
Received patient from ICU. Respiration even and unlabored without SOB. Call light in reach. Family members at bedside. Denies pain at this time. Right subclavian catheter in placed, intact.
[2019-09-23] MEDS ORDERED: SODIUM CHLORIDE 0.9% 1000ML 2,000 ML ONE (16:07)
[2019-09-23] MEDS ORDERED: HEPARIN SOD (PORCINE) 1000 UNIT/ML SDV IV PRN (16:30)
[2019-09-23] MEDS ORDERED: SODIUM CHLORIDE 0.9% 250ML 500 ML IV PRN (16:30)
[2019-09-23] MEDS ORDERED: MANNITOL 25% 12.5GM/50 ML VIAL IV PRN (16:30)
[2019-09-23] MEDS ORDERED: ALBUMIN 25% 12.5GM 0.25 GM/ML BTL IV PRN (16:30)
[2019-09-23] MEDS ORDERED: SODIUM CHLORIDE 0.9% 1000ML 2,000 ML IV PRN (16:30)
--- NOTE | 2019-09-23 19:05 | NUR ---
Report given to pipefitter. Patient is currently on dialysis at this time. Awake, alert, respiration even and unlabored without SOB. Family at bedside. Call light in reach.
--- NOTE | 2019-09-23 22:00 | NUR ---
PATIENT IN STABLE CONDITION, NO SIGNS OF DISTRESS NOTED. PATIENT IS DONE WITH HEMODIALYSIS AND HAS HAD 2 LITERS REMOVED. PATIENT VOICES PAIN IN LOWER BACK AT A LEVEL OF 7 AND WILL BE MEDICATED ORDERED. VENELEX BANDAGE IS CLEAN AND INTACT ON SACRUM. BED IS IN LOW POSITION, BOTH SIDE RAILS ARE UP, CALL LIGHT WITHIN EASY REACH, WILL CONTINUE TO MONITOR.
[2019-09-23] MEDS: TAMSULOSIN HCL 0.4 MG CAP PO SCH (22:10)
[2019-09-23] MEDS: HYDROCODONE/APAP 5MG-325MG TAB PO PRN (22:42)
[2019-09-24] VITALS (7 sets, daily range): BP systolic 110–132; BP diastolic 55–59
[2019-09-24 05:57] LABS: BASOPHILS % 0.3 % (0.0-1.0); EOSINOPHILS % 0.4 % (0.0-6.0); HEMATOCRIT 26.8 % (38.2-49.6); HEMOGLOBIN 8.3 g/dL (14.0-18.0); LYMPHOCYTES # (AUTO) 0.9 (1.0-3.2); MEAN CORPUSCULAR VOLUME 93.7 fL (81-99); MONOCYTES # (AUTO) 0.6 (0.2-0.8); MONOCYTES % 6.2 % (4.4-11.3); NEUTROPHILS # (AUTO) 7.4 (2.1-6.9); NEUTROPHILS % 82.3 % (38.7-80.0); PLATELET COUNT 212 x10e3/uL (140-360); RED BLOOD COUNT 2.86 x10e6/uL (4.3-5.7); RED CELL DISTRIBUTION WIDTH 17.3 % (11.7-14.4)
[2019-09-24] MEDS: HYDROCODONE/APAP 5MG-325MG TAB PO PRN ×2 (06:03→20:00)
[2019-09-24] MEDS: PANTOPRAZOLE SOD 40 MG TABEC PO SCH (07:09)
[2019-09-24] MEDS: DUTASTERIDE 0.5 MG CAP PO SCH (09:21)
[2019-09-24] MEDS: SODIUM BICARBONATE 650 MG TAB PO SCH ×2 (09:21→20:00)
[2019-09-24] MEDS ORDERED: CEPHALEXIN MONOHYDRATE 250 MG CAP PO SCH (09:30)
[2019-09-24] MEDS: CALCITRIOL 0.25 MCG CAP PO SCH (09:53)
--- NOTE | 2019-09-24 11:30 | Diagnostic Imaging Report ---
EXAM: US ABDOMEN COMPLETE DATE: 09/24/2019 12:00 AM INDICATION: Hemoperitoneum COMPARISON: CT abdomen and pelvis of 09/20/2019 TECHNIQUE: Transverse and longitudinal ang scale and color doppler sonographic images of the upper abdomen were obtained. FINDINGS: LIVER 11.9 cm in the right midclavicular line. Normal echogenicity of the liver with normal contour, no masses. SPLEEN Not visualized. GALLBLADDER Sludge and stones in the gallbladder. No gallbladder wall thickening, pericholecystic fluid, or gallbladder distention. Negative sonographic Faust's sign. The gallbladder wall measures 2 mm. BILE DUCTS No intra nor extra-hepatic biliary dilation. Common bile duct measures 4 mm PANCREAS: Visualized portions are normal. RIGHT KIDNEY: 10.2 cm Echogenicity: Normal Collecting System: No hydronephrosis Stones: None Cyst/Mass: None LEFT KIDNEY: Left nephrectomy. VESSELS: Aorta: Visualized portions are within normal size limits Inferior Vena Cava: Visualized portions are normal Main Portal Vein: 0.7 cm, normal size with hepatopetal flow. FREE FLUID: Small volume ascites with echogenic debris. IMPRESSION: Small volume complex ascites with echogenic debris may represent hemoperitoneum versus malignant ascites. Cholelithiasis without sonographic evidence of cholecystitis. Signed by: Carmine Albright MD on 09/24/2019 11:27 AM
--- NOTE | 2019-09-24 13:48 | Consultation ---
DATE OF CONSULTATION: 09/21/2019 HISTORY OF PRESENT ILLNESS: An 84-year-old gentleman known to our Nephrology Service, presented with generalized weakness, has been requiring packed RBC transfusions. Has history of prior nephrectomy for renal cell carcinoma, prior history of tobacco addiction, history of lung cancer, history of hypertension, diabetes, end-stage renal disease, prostate enlargement and history of hyperlipidemia. He has had prior GI bleed, had endoscopies done. Dr. Kyle saw him back in August. He is on a Monday, Monday, Monday schedule. He presented in the ER yesterday with quite weak, relatively hypotensive. Hemoglobin is 5.1, was transfused with 3 units of packed RBC. He is scheduled for another 2 units of packed RBC transfusion and dialysis today. PHYSICAL EXAMINATION: GENERAL: He is currently awake, alert, oriented, lying supine in no apparent distress. VITAL SIGNS: Has a blood pressure of 141/59, pulse rate 89, afebrile. HEAD AND NECK: Cornea clear. Oral mucosa moist. LUNGS: Relatively clear. No rales. HEART: S1 and S2 audible. ABDOMEN: Otherwise soft, nontender. No deep palpation done. EXTREMITIES: Lower extremity examination shows no edema. IMAGING: Workup included CT abdomen, please see official report. It is remarkable for progression of widespread metastatic disease in the left retroperitoneum and findings suggestive of hemorrhage with retroperitoneal carcinomatosis, worsening pulmonary metastatic disease and mediastinal adenopathy. LABORATORY TEST: Shows potassium level of 3.6, creatinine 5.7, hemoglobin 7.5, underlying end-stage renal disease, retroperitoneal bleed, consequent anemia. PLAN: Hemodialysis. No heparin. We will transfuse 2 units of packed RBC. Urology, General surgery to see. Overall, extremely poor prognosis. Blood pressure appears stable. DICTATION ENDS HERE. MD CAROL May/IRASEMA /[id number]
[2019-09-24] MEDS ORDERED: LEVOFLOXACIN 250MG/D5W 50ML 50 ML IV SCH (15:00)
--- NOTE | 2019-09-24 18:24 | Progress Note ---
DATE: 09/24/2019 CONSULTANTS: 1. Dr. Cruz with Hematology. 2. Dr. Shah with Nephrology. 3. Dr. Craig with Urology. CHIEF COMPLAINT: Abdominal pain and ESRD with renal cancer. SUBJECTIVE: The patient is transferred out of ICU, reports abdominal pain is improved. Noted abdominal ultrasound. Hemoglobin is 8.3, suddenly dropping. He denies any chest pain, shortness of breath, nausea, or vomiting. OBJECTIVE: VITAL SIGNS: Temperature 97.4, pulse is 91, respirations 18, blood pressure 132/58, pulse ox is 98% on room air. GENERAL: Fatigue. HEENT: Normocephalic, atraumatic. NECK: Supple. LUNGS: Clear to auscultation. CARDIOVASCULAR: Regular rate and rhythm. GI: Soft and nontender. Mildly distended. NEURO: Alert, awake, oriented x3. MUSCULOSKELETAL: Moves all extremities. SKIN: Dry. PSYCH: Calm. LABORATORY DATA: WBC 8.97, hemoglobin 8.3, hematocrit 26.8, platelets 212. IMAGING: Abdominal ultrasound shows small volume complex ascites with echogenic debris, may represent hemoperitoneum versus malignant ascites. ASSESSMENT: 1. Acute blood loss anemia due to renal cell carcinoma with metastasis to peritoneum. Status post 4 units of blood transfusions. Hemoglobin 8.3. We will continue to monitor closely. Oncologist on the case. 2. End-stage renal disease, on hemodialysis Monday, Monday, Monday per Nephrology. 3. Urinary tract infection. Urine culture positive for Escherichia coli with Enterococcus faecalis, started on Levaquin. 4. Diabetes. Diet controlled. 5. Benign prostatic hypertrophy. Continue Flomax. Urology is on the case. 6. History of renal cell carcinoma. Continue with Avodart per oncologist. 7. Deep venous thrombosis prophylaxis. No chemical anticoagulation due to anemia. PLAN: Plan is to continue monitoring H and H, dialysis planned for tomorrow. We will plan on transfusion if hemoglobin is less than 7. Dictated by ROBLES Sanchez Charles Frederick MD MY/MODL /[id number]
[2019-09-24] MEDS: TAMSULOSIN HCL 0.4 MG CAP PO SCH (20:00)
--- NOTE | 2019-09-24 20:00 | NUR ---
PATIENT IN STABLE CONDITION, NO SIGNS OF DISTRESS NOTED. PATIENT VOICES PAIN IN LOWER BACK AT A LEVEL OF 7 AND WAS MEDICATED ORDERED. VENELEX BANDAGE IS CLEAN AND INTACT ON SACRUM. PATIENT ALSO VOICED SATISFACTION WITH PADDED MATRESS. BED IS IN LOW POSITION, BOTH SIDE RAILS ARE UP, CALL LIGHT WITHIN EASY REACH, WILL CONTINUE TO MONITOR.
[2019-09-25] VITALS (8 sets, daily range): BP systolic 101–126; BP diastolic 55–61
[2019-09-25 05:48] LABS: BASOPHILS % 0.3 % (0.0-1.0); EOSINOPHILS # (AUTO) 0.1 (0.0-0.4); EOSINOPHILS % 0.8 % (0.0-6.0); HEMATOCRIT 25.9 % (38.2-49.6); LYMPHOCYTES % 10.2 % (18.0-39.1); MEAN CORPUSCULAR HEMOGLOBIN 29.5 pg (28-32); MEAN CORPUSCULAR HGB CONC 30.9 g/dL (31-35); MEAN CORPUSCULAR VOLUME 95.6 fL (81-99); MONOCYTES # (AUTO) 0.6 (0.2-0.8); MONOCYTES % 6.5 % (4.4-11.3); NEUTROPHILS # (AUTO) 7.8 (2.1-6.9); NEUTROPHILS % 81.3 % (38.7-80.0); PLATELET COUNT 206 x10e3/uL (140-360); RED BLOOD COUNT 2.71 x10e6/uL (4.3-5.7); RED CELL DISTRIBUTION WIDTH 17.7 % (11.7-14.4)
[2019-09-25] MEDS: PANTOPRAZOLE SOD 40 MG TABEC PO SCH (07:30)
[2019-09-25] MEDS: SODIUM BICARBONATE 650 MG TAB PO SCH ×2 (09:00→20:52)
[2019-09-25] MEDS: DUTASTERIDE 0.5 MG CAP PO SCH (09:00)
[2019-09-25] MEDS: CALCITRIOL 0.25 MCG CAP PO SCH (09:00)
[2019-09-25] MEDS ORDERED: SODIUM CHLORIDE 0.9% 250ML 250 ML IV ONE (09:30)
[2019-09-25] MEDS ORDERED: SODIUM CHLORIDE 0.9% IV SCH ×2 (11:00→12:00)
[2019-09-25] MEDS ORDERED: AMINOCAPROIC ACID IV SCH ×2 (11:00→12:00)
[2019-09-25 11:24] LABS: ANION GAP 13.9 mmol/L (8-16); CALCIUM 7.4 mg/dL (8.4-10.2); CREATININE, SERUM 4.65 mg/dL (0.72-1.25); POTASSIUM 3.9 mmol/L (3.5-5.1)
--- NOTE | 2019-09-25 12:17 | NUR ---
DIALYSIS IN PROGRESS, NO CHANGE IN CONDITION
[2019-09-25] MEDS ORDERED: SODIUM CHLORIDE 0.9% 250ML 250 ML ONE (16:33)
[2019-09-25] MEDS: AMINOCAPROIC ACID IV SCH ×2 (16:40→20:52)
[2019-09-25] MEDS: SODIUM CHLORIDE 0.9% IV SCH ×2 (16:40→20:52)
--- NOTE | 2019-09-25 19:13 | Progress Note ---
DATE: 09/25/2019 An 84-year-old male. CONSULTANTS: 1. Dr. Manjarrez with Hematology. 2. Dr. Shah with Nephrology. 3. Dr. Craig with Neurology. CHIEF COMPLAINT: Abdominal pain improved, acute blood-loss anemia due to RCC. SUBJECTIVE: The patient was seen in the room while HD was in progress. He received one more unit of PRBC. His hemoglobin was 8.0 this morning. He denies any chest pain, shortness of breath, nausea, vomiting, or abdominal pain. OBJECTIVE: VITAL SIGNS: Temperature 97.9, pulse is 109, respirations 20, blood pressure 126/58, pulse ox is 98% on room air. GENERAL: No acute distress. HEENT: Normocephalic, atraumatic. NECK: Supple. LUNGS: Clear to auscultation. CARDIOVASCULAR: Regular rate and rhythm. GI: Soft and nontender. Mildly distended. NEURO: Alert, awake, oriented x3. MUSCULOSKELETAL: Moves all extremities. SKIN: Dry. LABORATORY DATA: WBC 9.6, hemoglobin 8.0, hematocrit 25.9. Sodium 135, potassium 3.9. BUN 34, creatinine 4.65, calcium 7.4. ASSESSMENT: 1. Acute blood loss anemia due to renal cell carcinoma. Ultrasound noted, status post one more unit of blood with dialysis today. Oncologist on the case. 2. End-stage renal disease, on dialysis Monday, Monday, Monday per Nephrology. 3. Urinary tract infection. Urine positive for Escherichia coli with Enterococcus faecalis. Continue on Levaquin. 4. Diabetes. Diet controlled. 5. Benign prostatic hyperplasia. Continue Flomax. Urology is on the case. 6. History of renal cell carcinoma. Continue Avodart per oncologist. May consider further workup and change of medication outpatient. 7. Deep venous thrombosis prophylaxis. No chemical anticoagulation due to anemia. PLAN: Plan is to continue to monitor hemoglobin. Aminocaproic acid IV given q.4. Home once cleared by Hematology. Dictated by ROBLES Sanchez Laceyching Jase Frederick MD MY/MODL /[id number] Seen and examined on 09/25/19. Agree with the findings and plan as documented by ROBLES Reagan. KIRIT
--- NOTE | 2019-09-25 19:57 | NUR ---
RECEIVED BEDSIDE SHIFT REPORT FROM PREVIOUS NURSE. CALL LIGHT WITHIN REACH. PATIENT IN BED. DAUGHTER AT BEDSIDE Addendum: 09/26/19 at 0557 by Tati Lloyd RN CHANGE TIME TO 1900
--- NOTE | 2019-09-25 20:21 | NUR ---
CALLED AND TALKED TO DR. CLINE ABOUT THE PATIENT'S FINGERSTICK/ACHS BEING 300 AND NO SLIDING SCALE OR MEDICATION IS WRITTEN FOR THE ELEVATED SUGAR. DR. CLINE ORDERED LOW DOSE SLIDING SCALE OF HUMALOG FOR THE PATIENT.
[2019-09-25] MEDS: TAMSULOSIN HCL 0.4 MG CAP PO SCH (20:52)
[2019-09-25] MEDS: INSULIN LISPRO 100 UNIT/1 ML 3ML VIAL SQ SCH (20:53)
[2019-09-26] VITALS (8 sets, daily range): BP systolic 106–135; BP diastolic 51–63
[2019-09-26] MEDS: SODIUM CHLORIDE 0.9% IV SCH ×6 (00:51→22:32)
[2019-09-26] MEDS: AMINOCAPROIC ACID IV SCH ×6 (00:51→22:32)
[2019-09-26 06:12] LABS: BASOPHILS % 0.4 % (0.0-1.0); EOSINOPHILS # (AUTO) 0.1 (0.0-0.4); HEMATOCRIT 25.3 % (38.2-49.6); HEMOGLOBIN 7.8 g/dL (14.0-18.0); LYMPHOCYTES # (AUTO) 0.8 (1.0-3.2); LYMPHOCYTES % 9.9 % (18.0-39.1); MEAN CORPUSCULAR HEMOGLOBIN 29.4 pg (28-32); MEAN CORPUSCULAR HGB CONC 30.8 g/dL (31-35); MEAN CORPUSCULAR VOLUME 95.5 fL (81-99); MONOCYTES # (AUTO) 0.6 (0.2-0.8); MONOCYTES % 7.4 % (4.4-11.3); NEUTROPHILS # (AUTO) 6.6 (2.1-6.9); PLATELET COUNT 195 x10e3/uL (140-360); RED BLOOD COUNT 2.65 x10e6/uL (4.3-5.7); RED CELL DISTRIBUTION WIDTH 17.3 % (11.7-14.4)
--- NOTE | 2019-09-26 07:12 | NUR ---
GAVE BEDSIDE SHIFT REPORT FROM PREVIOUS NURSE. CALL LIGHT WITHIN REACH. PATIENT IN BED. PATIENT IS A&OX3.
[2019-09-26] MEDS: PANTOPRAZOLE SOD 40 MG TABEC PO SCH (07:30)
[2019-09-26] MEDS: INSULIN LISPRO 100 UNIT/1 ML 3ML VIAL SQ SCH ×4 (08:30→21:27)
[2019-09-26] MEDS: DUTASTERIDE 0.5 MG CAP PO SCH (09:44)
[2019-09-26] MEDS: CALCITRIOL 0.25 MCG CAP PO SCH (09:44)
[2019-09-26] MEDS: SODIUM BICARBONATE 650 MG TAB PO SCH ×2 (09:44→21:27)
--- NOTE | 2019-09-26 12:09 | Progress Note ---
DATE: 09/26/2019 CONSULTANTS: 1. Dr. Manjarrez with Hematology. 2. Dr. Shah with Nephrology. 3. Dr. Craig with Urology. CHIEF COMPLAINT: Abdominal pain improved, acute generalized weakness due to anemia. SUBJECTIVE: The patient is resting in bed with no acute distress. He denies any chest pain, shortness of breath, abdominal pain, or nausea or vomiting. OBJECTIVE: VITAL SIGNS: Temperature 96.8, pulse is 88, respirations 20, blood pressure is 115/56, pulse ox is 97% on room air. GENERAL: No acute distress. HEENT: Normocephalic, atraumatic. NECK: Supple. LUNGS: Clear to auscultation. CARDIOVASCULAR: Regular rate and rhythm. GI: Soft and nontender. NEURO: Alert, awake, oriented x3. MUSCULOSKELETAL: Moves all extremities. SKIN: Dry. LABORATORY DATA: WBC 8.22, hemoglobin 7.8, hematocrit 25.3, platelet 195. IMPRESSION: 1. Acute blood loss anemia due to renal cell carcinoma. Ultrasound noted. Status post 3 units of blood total. Hemoglobin is 7.8. Further recommendation per our Hematology. 2. End-stage renal disease. On dialysis Monday, Monday, Monday per Nephrology. 3. Urinary tract infection. Urine culture positive for Escherichia coli with enterococcus faecalis. We will continue with Levaquin per sensitivity. 4. Diabetes. Diet controlled. 5. Benign prostatic hypertrophy. Continue Flomax. Urology on the case. 6. History of renal cell carcinoma. Continue with his oncologist. 7. Deep vein thrombosis prophylaxis. No chemical anticoagulation due to anemia. PLAN: Monitor hemoglobin closely. Further recommendation per Hematology. Dictated by ROBLES Sanchez Charles Frederick MD MY/MODL /[id number] Seen and examined. Agree with the findings and plan as documented by ROBLES Reagan. MTDD
--- NOTE | 2019-09-26 12:43 | NUR ---
AMBULATING IN HALLWAY, STEADY GAIT
--- NOTE | 2019-09-26 19:03 | NUR ---
RECEIVED BEDSIDE SHIFT REPORT FROM PREVIOUS NURSE. CALL LIGHT WITHIN REACH. PATIENT IN BED.
[2019-09-26] MEDS: TAMSULOSIN HCL 0.4 MG CAP PO SCH (21:27)
[2019-09-26] MEDS: LEVOFLOXACIN 250MG/D5W 50ML 50 ML IV SCH (21:27)
[2019-09-26] MEDS ORDERED: SODIUM CHLORIDE 0.9% 250ML 250 ML ONE (21:42)
[2019-09-26] MEDS: HYDROCODONE/APAP 5MG-325MG TAB PO PRN (23:20)
[2019-09-27] VITALS: BP 104/55
[2019-09-27] MEDS: AMINOCAPROIC ACID IV SCH ×4 (02:35→18:12)
[2019-09-27] MEDS: SODIUM CHLORIDE 0.9% IV SCH ×4 (02:35→18:12)
[2019-09-27 04:00] VITALS: BP 111/54
[2019-09-27] MEDS: SODIUM CHLORIDE FLUSH 10 ML SYR INJ PRN (04:16)
[2019-09-27 06:18] LABS: BASOPHILS % 0.4 % (0.0-1.0); EOSINOPHILS # (AUTO) 0.1 (0.0-0.4); EOSINOPHILS % 0.8 % (0.0-6.0); HEMATOCRIT 24.5 % (38.2-49.6); HEMOGLOBIN 7.4 g/dL (14.0-18.0); LYMPHOCYTES # (AUTO) 0.8 (1.0-3.2); LYMPHOCYTES % 7.5 % (18.0-39.1); MEAN CORPUSCULAR HEMOGLOBIN 29.7 pg (28-32); MEAN CORPUSCULAR HGB CONC 30.2 g/dL (31-35); MEAN CORPUSCULAR VOLUME 98.4 fL (81-99); MONOCYTES # (AUTO) 0.8 (0.2-0.8); MONOCYTES % 7.7 % (4.4-11.3); NEUTROPHILS # (AUTO) 8.2 (2.1-6.9); NEUTROPHILS % 82.3 % (38.7-80.0); PLATELET COUNT 198 x10e3/uL (140-360); RED BLOOD COUNT 2.49 x10e6/uL (4.3-5.7); RED CELL DISTRIBUTION WIDTH 17.4 % (11.7-14.4)
--- NOTE | 2019-09-27 07:15 | NUR ---
Received patient lying in bed with eyes open. Respiration even and unlabored without SOB. Call light in reach. denies pain.
--- NOTE | 2019-09-27 07:25 | NUR ---
GAVE BEDSIDE SHIFT REPORT TO ONCOMING NURSE. CALL LIGHT WITHIN REACH. PATIENT IN BED.
[2019-09-27 08:03] VITALS: BP 114/54
[2019-09-27] MEDS: INSULIN LISPRO 100 UNIT/1 ML 3ML VIAL SQ SCH ×4 (08:10→21:19)
--- NOTE | 2019-09-27 08:50 | NUR ---
Patient is on dialysis at this time. First unit of PRBC is given with HD.
[2019-09-27] MEDS: PANTOPRAZOLE SOD 40 MG TABEC PO SCH (08:52)
[2019-09-27] MEDS: DUTASTERIDE 0.5 MG CAP PO SCH (08:52)
[2019-09-27] MEDS: SODIUM BICARBONATE 650 MG TAB PO SCH ×2 (08:52→21:19)
[2019-09-27] MEDS: CALCITRIOL 0.25 MCG CAP PO SCH (08:52)
[2019-09-27] MEDS: ONDANSETRON HCL INJ 2MG/ML 2ML 2 MG/ML VIAL IV PRN (08:52)
[2019-09-27 09:47] VITALS: BP 114/54
[2019-09-27] MEDS ORDERED: SODIUM CHLORIDE 0.9% 250ML 250 ML IV ONE (10:00)
[2019-09-27] MEDS ORDERED: SODIUM CHLORIDE 0.9% 1000ML 2,000 ML ONE (10:06)
[2019-09-27] MEDS ORDERED: HEPARIN SOD (PORCINE) 1000 UNIT/ML SDV IV PRN (10:15)
[2019-09-27 11:42] VITALS: BP 107/59
--- NOTE | 2019-09-27 13:52 | Progress Note ---
DATE: 09/27/2019 CONSULTANTS: 1. Dr. Manjarrez with Hematology. 2. Dr. Shah with Nephrology. 3. Dr. Craig with Urology. CHIEF COMPLAINT: Abdominal pain and acute generalized weakness due to anemia. SUBJECTIVE: The patient was seen while HD in progress. Hemoglobin continues to drop to 7.4, and plan to transfuse 2 units with dialysis. He denies any chest pain, shortness of breath, nausea, or vomiting. OBJECTIVE: VITAL SIGNS: Temperature 97, pulse is 93, respirations 18, blood pressure 114/64, pulse ox is 98% on room air. GENERAL: In no acute distress. HEENT: Normocephalic, atraumatic. NECK: Supple. LUNGS: Clear to auscultation. CARDIOVASCULAR: Regular rate and rhythm. GI: Soft and nontender. NEURO: Alert, awake, and oriented x3. MUSCULOSKELETAL: Moves all extremities. SKIN: Dry LABORATORY DATA: WBC 9.9, hemoglobin 7.4, hematocrit 24.5, platelets 198. IMPRESSION: 1. Acute blood loss anemia due to renal cell carcinoma, status post 5 units of PRBC transfusion. Hemoglobin is down to 7.4. Two more units of PRBC need to be transfused with hemodialysis today. Hematology on the case. 2. End-stage renal disease, on dialysis Monday, Monday, Monday per Nephrology. 3. Urinary tract infection with Escherichia coli and enterococcus faecalis. We will continue Levaquin per sensitivity renal dosed. 4. Diabetes. Sliding scale insulin. 5. Benign prostatic hypertrophy. Continue Flomax. Urology on the case. 6. History of renal call carcinoma. Continue treatment with oncologist. 7. Deep vein thrombosis prophylaxis. No chemical anticoagulation due to anemia. PLAN: To transfuse 2 more units of PRBCs today with dialysis. Further recommendations per Hematology. Dictated by ROBLES Sanchez Charles Frederick MD MY/MODL /[id number] Seen and examined on 09/27/19. Agree with the findings and plan as documented by ROBLES Reagan. MTDD
[2019-09-27 16:16] VITALS: BP 119/63
--- NOTE | 2019-09-27 18:09 | NUR ---
Nutrition Intervention Note RD Recommendation(s) for Physician: -Nepro BID for added nutrition -Continue current diet as ordered Plan of Care: RD following, monitoring for tolerance and adequacy Nutrition reason for involvement: follow up RD Assessment (09/27) Follow up. Pt reports he has been eating <50% of his meals for > 1 month and is experiencing N/V at this time. Recommend Nepro BID for added nutrition. Pt did not have any questions at time of visit. Will continue to monitor. (09/21) Initial encounter with patient. Diet Hx: pt has no known food allergies. Pt with C/O of dry mouth and dysgeusia probably due to medications, and decreased appetite. Pt usually drinks Nepro once a day. RD discussed adding Nepro once daily with attending physician while he was rounding and he gave his approval. Pt with C/O diarrhea and some nausea. Pt is dentate and denies any difficulty chewing or swallowing with no significant wt changes. Pt is able to feed himself. Principal Problems/Diagnoses: ESRD, Carcinoma of retroperitoneum, HD PMH: lung cancer, HTN, High cholesterol, T2DM, Nephrectomy, renal cancer GI: soft, non-tender, round abdomen Skin: intact Labs: 09/25: Na 135, BUN 34, Creat 4.65, Glu 130, Ca 7/4 Meds: insulin, calcitriol, protonix, zofran, levofloxacin, NaCl, iron, heparin, mannitol, loperamide Ht: 70 inches Wt: 169 lbs BMI: 24.24 kg/m2 IBW: 166 lbs Malnutrition Evaluation (09/21/2019) The patient does not meet criteria for a specified degree of malnutrition at this time. Will re-evaluate at follow-up as appropriate. Nutrition Prescription (Diet Order): Renal/diabetic diet Estimated Nutritional Needs: 2437-1353 calories/day (30-35 kcal/kg CBW) 92-115 g protein/day (1.2-1.5 g pro/kg CBW) Diet Adequacy:Not meeting calorie needs, Not meeting protein needs per pt report Tolerance: Pt reports he has been experiencing N/V Diet Education Needs Assessment: Diet education not desired by pt at this time. Nutrition Care Level: moderate Nutrition Diagnosis: Inadequate energy intake related to decreased ability to consume sufficient energy secondary to decreased appetite as evidenced by pt reports eating <50% of meals. Goal: Patient will meet 75-100% of estimated needs by follow up Progress: N/A Interventions: -carbohydrate, mineral modified diet, Commercial beverage Monitoring/Evaluation: -(Total energy intake, Total protein intake, Modified diet, Liquid supplement, Weight change Signed: Yvonne Casillas RD, LD
--- NOTE | 2019-09-27 19:05 | NUR ---
Report given to cook night. Respiration even and unlabored without SOB. Family at bedside. Call light in reach.
[2019-09-27] MEDS: TAMSULOSIN HCL 0.4 MG CAP PO SCH (21:19)
[2019-09-28] VITALS (9 sets, daily range): BP systolic 100–128; BP diastolic 51–61
[2019-09-28] MEDS: ONDANSETRON HCL INJ 2MG/ML 2ML 2 MG/ML VIAL IV PRN (00:50)
[2019-09-28] MEDS: HYDROCODONE/APAP 5MG-325MG TAB PO PRN ×2 (01:08→19:17)
--- NOTE | 2019-09-28 07:05 | NUR ---
Received patient lying on the bed with eyes open, respiration even and unlabored without SOB. Call light in reach.
[2019-09-28 07:44] LABS: BASOPHILS % 0.4 % (0.0-1.0); EOSINOPHILS % 0.4 % (0.0-6.0); HEMATOCRIT 28.7 % (38.2-49.6); HEMOGLOBIN 9.1 g/dL (14.0-18.0); LYMPHOCYTES # (AUTO) 0.7 (1.0-3.2); LYMPHOCYTES % 7.2 % (18.0-39.1); MEAN CORPUSCULAR HEMOGLOBIN 30.1 pg (28-32); MEAN CORPUSCULAR HGB CONC 31.7 g/dL (31-35); MONOCYTES # (AUTO) 0.9 (0.2-0.8); MONOCYTES % 9.1 % (4.4-11.3); NEUTROPHILS # (AUTO) 7.9 (2.1-6.9); NEUTROPHILS % 81.7 % (38.7-80.0); PLATELET COUNT 199 x10e3/uL (140-360); RED BLOOD COUNT 3.02 x10e6/uL (4.3-5.7); RED CELL DISTRIBUTION WIDTH 16.5 % (11.7-14.4)
[2019-09-28] MEDS: SODIUM BICARBONATE 650 MG TAB PO SCH ×2 (08:19→21:16)
[2019-09-28] MEDS: CALCITRIOL 0.25 MCG CAP PO SCH (08:19)
[2019-09-28] MEDS: DUTASTERIDE 0.5 MG CAP PO SCH (08:19)
[2019-09-28] MEDS: PANTOPRAZOLE SOD 40 MG TABEC PO SCH (08:19)
[2019-09-28] MEDS: INSULIN LISPRO 100 UNIT/1 ML 3ML VIAL SQ SCH ×4 (08:28→20:50)
--- NOTE | 2019-09-28 17:17 | Progress Note ---
DATE: 09/28/2019 CONSULTANTS: 1. Dr. Manjarrez with Hematology. 2. Dr. Shah with Nephrology. 3. Dr. Craig with Urology. CHIEF COMPLAINT: Abdominal pain and acute generalized weakness due to anemia. SUBJECTIVE: The patient was seen resting in bed with no acute distress. Status post 7 units of PRBCs total, hemoglobin is now improved to 9.1. He denies any chest pain, shortness of breath, nausea, or vomiting. He reports constipation x3 days. OBJECTIVE: VITAL SIGNS: Temperature 96.6, pulse is 99, respirations 20, blood pressure 114/54, and pulse ox is 98% on room air. GENERAL: Fatigue. HEENT: Normocephalic, atraumatic. NECK: Supple. LUNGS: Clear to auscultation. CARDIOVASCULAR: Regular rate and rhythm. GI: Soft and nontender. Obese. NEURO: Alert, awake, and oriented x3. MUSCULOSKELETAL: Moves all extremities. SKIN: Dry. PSYCH: Calm. LABORATORY DATA: WBC 9.70, hemoglobin is 9.1, hematocrit 28.7, and platelet is 199. IMPRESSION: 1. Acute blood loss anemia due to renal cell carcinoma. Status post 7 units of PRBCs total. Hemoglobin is 9.1 today. We will continue to monitor H and H closely. Hematology on the case. 2. End-stage renal disease on dialysis Monday, Monday, Monday per Nephrology. 3. Urinary tract infection with Escherichia coli and enterococcus faecalis. We will continue with Levaquin per sensitivity renal dosed. 4. Diabetes. Sliding scale insulin as needed. 5. Benign prostatic hypertrophy. Continue Flomax and Neurology on the case. 6. History of renal cell carcinoma. Defer to oncologist. 7. Constipation. We will add Colace and lactulose p.r.n. 8. Deep venous thrombosis prophylaxis. No chemical anticoagulation due to anemia. PLAN: Plan is to continue monitoring at H and H closely. May discharge once cleared by Hematology. Dictated by ROBLES Sanchez Charles Frederick MD MY/MODL /[id number]
--- NOTE | 2019-09-28 19:13 | NUR ---
Report given to woven label designer. Respiration even and unlabored without SOB. Call light in reach.
[2019-09-28] MEDS: TAMSULOSIN HCL 0.4 MG CAP PO SCH (21:16)
[2019-09-28] MEDS: LEVOFLOXACIN 250MG/D5W 50ML 50 ML IV SCH (21:16)
[2019-09-29] VITALS (8 sets, daily range): BP systolic 101–115; BP diastolic 51–58
[2019-09-29 06:18] LABS: HEMATOCRIT 25.7 % (38.2-49.6); HEMOGLOBIN 8.3 g/dL (14.0-18.0)
--- NOTE | 2019-09-29 07:08 | NUR ---
Received patient lying on the bed with eyes open. Respiration even and unlabored without SOB. Call light in reach.
[2019-09-29] MEDS: INSULIN LISPRO 100 UNIT/1 ML 3ML VIAL SQ SCH ×4 (08:07→20:25)
[2019-09-29] MEDS: DUTASTERIDE 0.5 MG CAP PO SCH (08:07)
[2019-09-29] MEDS: PANTOPRAZOLE SOD 40 MG TABEC PO SCH (08:07)
[2019-09-29] MEDS: SODIUM BICARBONATE 650 MG TAB PO SCH ×2 (08:07→20:20)
[2019-09-29] MEDS: CALCITRIOL 0.25 MCG CAP PO SCH (08:07)
--- NOTE | 2019-09-29 09:45 | NUR ---
Verbal order given by Gabriela Pham to renew Amicar 2,500 mg in sodium chloride for 24 hrs.
[2019-09-29] MEDS: AMINOCAPROIC ACID IV SCH ×4 (12:25→23:40)
[2019-09-29] MEDS: SODIUM CHLORIDE 0.9% IV SCH ×4 (12:25→23:40)
--- NOTE | 2019-09-29 12:55 | NUR ---
Visit made by the Spiritual Care Department Pastoral Visitor, Graham Peter. PV provided pastoral presence, hospitality, communion, prayer, and supportive listening. Pastoral Visitor informed pt/family of the scope of Direct Care Supervisor Services and availability. KELBY SILVERIO Otolaryngology Surgeon Spiritual Care Department O: [phone] Pager: [phone] ([phone] number calling from)
[2019-09-29] MEDS: ONDANSETRON HCL INJ 2MG/ML 2ML 2 MG/ML VIAL IV PRN (15:04)
[2019-09-29] MEDS ORDERED: LACTULOSE SYRUP 20 GM/30 ML UDC PO ONE (15:45)
--- NOTE | 2019-09-29 16:36 | Progress Note ---
DATE: 09/29/2019 CONSULTANTS: 1. Dr. Manjarrez with Hematology. 2. Dr. Shah with Nephrology. 3. Dr. Craig with Urology. CHIEF COMPLAINT: Abdominal pain and acute generalized weakness due to acute on chronic anemia. SUBJECTIVE: The patient is complaining of constipation x3 days. Hemoglobin has dropped to 8.3 today. States feeling nauseous and abdominal distention. He denies any chest pain or shortness of breath. OBJECTIVE: VITAL SIGNS: Temperature 96.9, pulse is 100, respirations 18, blood pressure 114/54, pulse ox is 98% on room air. GENERAL: Fatigue. HEENT: Normocephalic, atraumatic. NECK: Supple. LUNGS: Clear to auscultation. CARDIOVASCULAR: Regular rate and rhythm. GI: Soft and nontender. Distended. NEURO: Alert, awake, and oriented x3. MUSCULOSKELETAL: Moves all extremities. No edema. SKIN: Dry. PSYCH: Calm. LABORATORY DATA: H and H 8.3/25.7. IMPRESSION: 1. Acute blood loss anemia due to renal cell carcinoma. Status post 7 units of PRBC. Hemoglobin today is 8.3. We will continue to monitor H and H. Hematology is on the case. Continue per Dr. Manjarrez. 2. End-stage renal disease on dialysis Monday, Monday, Monday per Nephrology. 3. Urinary tract infection with Escherichia coli and enterococcus faecalis. We will continue on Levaquin renal dose per sensitivity. 4. Diabetes. Sliding scale insulin as needed. 5. Benign prostatic hypertrophy. Continue Flomax, Urology on the case. 6. History of renal cell carcinoma. Defer to oncologist. 7. Constipation. We will continue with Colace and give lactulose x1 today. 8. Deep vein thrombosis prophylaxis. No chemical anticoagulation due to anemia. PLAN: Plan is to continue monitoring H and H and continue per Hematology. Repeat labs in a.m. Dictated by ROBLES Sanchez Charles Frederick MD MY/MODL /[id number]
--- NOTE | 2019-09-29 17:12 | NUR ---
Patient is transported to radiology at this time.
--- NOTE | 2019-09-29 17:36 | NUR ---
Patient is back from radiology.
[2019-09-29] MEDS: HYDROCODONE/APAP 5MG-325MG TAB PO PRN ×2 (17:37→21:44)
--- NOTE | 2019-09-29 18:40 | Diagnostic Imaging Report ---
EXAM: Abdomen Radiograph 1 View(s) INDICATION: ^distention ^[id number] ^[id number] COMPARISON: None FINDINGS: Mildly dilated multiple loops of bowel which could be due to ileus. No abnormal abdominal calcifications.. No abnormal soft tissue masses. No pneumoperitoneum. No acute osseous abnormality. IMPRESSION: Mildly dilated multiple loops of bowel which could be due to ileus. Recommend follow-up KUB to assess interval change and exclude obstruction. Signed by: Davis Moreno MD on 09/29/2019 6:37 PM
--- NOTE | 2019-09-29 19:14 | NUR ---
Report given to patient. Respiration even and unlabored without SOB. Call light in reach.
[2019-09-29] MEDS: TAMSULOSIN HCL 0.4 MG CAP PO SCH (20:20)
[2019-09-30] VITALS (8 sets, daily range): BP systolic 90–117; BP diastolic 53–58
[2019-09-30] MEDS: AMINOCAPROIC ACID IV SCH ×2 (03:10→07:09)
[2019-09-30] MEDS: SODIUM CHLORIDE 0.9% IV SCH ×2 (03:10→07:09)
[2019-09-30] MEDS: DUTASTERIDE 0.5 MG CAP PO SCH (09:34)
[2019-09-30] MEDS: PANTOPRAZOLE SOD 40 MG TABEC PO SCH (09:34)
[2019-09-30] MEDS: CALCITRIOL 0.25 MCG CAP PO SCH (09:34)
[2019-09-30] MEDS: SODIUM BICARBONATE 650 MG TAB PO SCH ×2 (09:34→20:06)
[2019-09-30] MEDS: INSULIN LISPRO 100 UNIT/1 ML 3ML VIAL SQ SCH ×4 (10:12→20:06)
[2019-09-30 10:40] LABS: HEMATOCRIT 25.5 % (38.2-49.6)
--- NOTE | 2019-09-30 11:45 | Progress Note ---
DATE: 09/30/2019 CONSULTANTS: 1. Dr. Manjarrez with hematology. 2. Dr. Shah with Nephrology. 3. Dr. Craig with Urology. CHIEF COMPLAINT: Abdominal pain and acute generalized weakness due to [id number] anemia. SUBJECTIVE: The patient is resting in bed, looks fatigued, had BM x3 overnight. Hemoglobin is 8.3. Repeat H and H pending. Continues to complain of nausea. PHYSICAL EXAMINATION: VITAL SIGNS: Temperature 97.8, pulse is 106, respirations 16, blood pressure 110/55, and pulse ox is 97% on nasal cannula. GENERAL: Fatigued. HEENT: Normocephalic and atraumatic. NECK: Supple. LUNGS: Clear to auscultation. CARDIOVASCULAR: Regular rhythm, but tachycardia. GI: Soft and nontender. Distended. NEUROLOGIC: Alert, awake, and oriented x3. MUSCULOSKELETAL: Moves all extremities. No edema. SKIN: Dry. PSYCH: Calm. IMAGING DATA: KUB shows mildly dilated multiple loops of bowel, which could be due to ileus. No obstruction noted. IMPRESSION: 1. Acute blood loss anemia due to renal cell carcinoma. Status post transfusion of total of 7 units PRBC. Hemoglobin was 8.3 yesterday, pending today's H and H. Hematology is on the case. 2. End-stage renal disease, on dialysis, Monday, Monday, Monday per Nephrology. 3. Urinary tract infection with Escherichia coli and Enterococcus faecalis. Continue Levaquin renal dose per sensitivity. 4. Diabetes. Sliding scale insulin. 5. Tachycardia. Sinus rhythm, sinus tachy. Likely due to nausea and dehydration. We will give light hydration and treat with Zofran for nausea. 6. Benign prostatic hypertrophy. Continue Flomax. Urology on the case. 7. History of renal cell carcinoma. Defer to oncologist. 8. Ileus. KUB noted, was given lactulose x1. We will start on clear liquids and repeat KUB today. 9. Deep vein thrombosis prophylaxis. No chemical anticoagulation due to anemia. PLAN: To continue monitoring H and H and transfuse per Hematology. We will repeat KUB this morning. Dictated by ROBLES Sanchez Charles Frederick MD MY/MODL /[id number]
--- NOTE | 2019-09-30 12:42 | Diagnostic Imaging Report ---
Exam: KUB - 2 views Indication: Ileus Comparison: KUB 09/29/2019 Findings: Interval decrease in previously seen dilated loops of air-filled small bowel. No air-fluid levels. No free air. Otherwise, no significant interval change. Impression: Improvement in previously seen dilated loops of air-filled small bowel. Signed by: Carmine Albright MD on 09/30/2019 12:40 PM
[2019-09-30 12:46] LABS: ANION GAP 19.3 mmol/L (8-16); CALCIUM 7.8 mg/dL (8.4-10.2); CREATININE, SERUM 5.88 mg/dL (0.72-1.25); POTASSIUM 4.3 mmol/L (3.5-5.1)
[2019-09-30 12:47] LABS: BASOPHILS % 0.2 % (0.0-1.0); EOSINOPHILS % 0.1 % (0.0-6.0); HEMATOCRIT 25.2 % (38.2-49.6); LYMPHOCYTES # (AUTO) 0.3 (1.0-3.2); LYMPHOCYTES % 2.1 % (18.0-39.1); MEAN CORPUSCULAR HGB CONC 31.7 g/dL (31-35); MEAN CORPUSCULAR VOLUME 94.4 fL (81-99); MONOCYTES # (AUTO) 0.8 (0.2-0.8); MONOCYTES % 6.1 % (4.4-11.3); NEUTROPHILS # (AUTO) 11.8 (2.1-6.9); NEUTROPHILS % 90.6 % (38.7-80.0); PLATELET COUNT 231 x10e3/uL (140-360); RED BLOOD COUNT 2.67 x10e6/uL (4.3-5.7); RED CELL DISTRIBUTION WIDTH 16.2 % (11.7-14.4)
--- NOTE | 2019-09-30 13:29 | Progress Note ---
DATE: 09/30/2019 SUBJECTIVE: Remains weak. Abdomen is distended. Still needing blood transfusion intermittently. OBJECTIVE: VITAL SIGNS: Temperature 97.8, pulse 106, blood pressure 110/55. ABDOMEN: Ascites. EXTREMITIES: Trace edema. SKIN: Appears pale. NEUROLOGIC: Appears weak. LABORATORY DATA: Hemoglobin is 8. Last potassium was 3.9, last creatinine was 4.65, BUN of 34. ASSESSMENT: 1. End-stage renal disease, metastatic renal cancer. 2. Ascites, which is likely malignant. 3. Significant debility. PLAN: From renal standpoint, hemodialysis today. Please see my orders for details. Overall health is discussed. He is leaning towards hospice. I did inform Dr. Manjarrez, who will arrange palliative care, which is more reasonable and separately discussed with him too. We will follow along. MD JANINE FryeK/MODL /[id number]
[2019-09-30] MEDS: HYDROCODONE/APAP 5MG-325MG TAB PO PRN ×3 (14:39→23:44)
[2019-09-30] MEDS: SODIUM CHLORIDE 0.9% 1000ML 1,000 ML IV SCH (16:43)
--- NOTE | 2019-09-30 19:14 | NUR ---
Received bedside report from day nurse. Patient sitting in recliner, no s/s of distress or c/o pain at this time. All safety measures in place. Family at bedside. Will continue to monitor.
--- NOTE | 2019-09-30 19:51 | NUR ---
Dr. Manjarrez here to see patient, discussing possible plans for hospice. Per Dr. Manjarrez, put in order to case management to arrange for hospice. Patient and family also informed Dr. Manjarrez that they would like to change code status to DNAR. RN verified request, patient and family verbalized understanding.
[2019-09-30] MEDS: TAMSULOSIN HCL 0.4 MG CAP PO SCH (20:06)
[2019-09-30] MEDS: LEVOFLOXACIN 250MG/D5W 50ML 50 ML IV SCH (20:16)
[2019-09-30] MEDS: ONDANSETRON HCL INJ 2MG/ML 2ML 2 MG/ML VIAL IV PRN (20:21)
--- NOTE | 2019-09-30 23:30 | NUR ---
Patient c/o of generalized pain 02/13. Called Dr. Frederick and received orders to renew Burton 5.
[2019-10-01] VITALS (9 sets, daily range): BP systolic 91–112; BP diastolic 51–60
[2019-10-01] MEDS: HYDROCODONE/APAP 5MG-325MG TAB PO PRN (03:29)
--- NOTE | 2019-10-01 03:30 | NUR ---
Assisted patient to recliner via walker. Call light placed within reach. Instructed to call for assistance if needed. Verbalized understanding. All safety measures in place. Will continue to monitor.
--- NOTE | 2019-10-01 06:57 | NUR ---
Bedside report given to day nurse. Patient awake and resting in bed, no s/s of distress at this time. All safety measures in place.
[2019-10-01] MEDS: INSULIN LISPRO 100 UNIT/1 ML 3ML VIAL SQ SCH ×4 (07:30→20:48)
--- NOTE | 2019-10-01 07:31 | NUR ---
Pt received in bed with eyes open. Pt denies any pain at this time. Breaths are even and unlabored on room air. 0 s/s of acute distress noted at this time.
--- NOTE | 2019-10-01 08:19 | NUR ---
SPOKE WITH FAMILY ABOUT HOSPICE ORDER, SIGNED CHOICE FOR [facility], FILED IN CHART AND CONTACTED REP.
[2019-10-01] MEDS: ONDANSETRON HCL INJ 2MG/ML 2ML 2 MG/ML VIAL IV PRN ×3 (09:26→18:38)
[2019-10-01] MEDS: DUTASTERIDE 0.5 MG CAP PO SCH (09:44)
[2019-10-01] MEDS: CALCITRIOL 0.25 MCG CAP PO SCH (09:44)
[2019-10-01] MEDS: SODIUM BICARBONATE 650 MG TAB PO SCH ×2 (09:44→20:44)
[2019-10-01] MEDS: PANTOPRAZOLE SOD 40 MG TABEC PO SCH (09:44)
[2019-10-01] MEDS: HYDROMORPHONE 1MG/1ML INJ IV PRN ×3 (09:45→20:44)
[2019-10-01 12:01] LABS: INR 1.11
[2019-10-01 12:02] LABS: PARTIAL THROMBOPLASTIN TIME 41.5 seconds (23.8-35.5)
[2019-10-01] MEDS: SODIUM CHLORIDE 0.9% 1000ML 1,000 ML IV SCH (13:00)
--- NOTE | 2019-10-01 13:33 | NUR ---
HOSPICE EQUIPMENT WILL BE DELIVERED TONIGHT PT WILL DISCHARGE AT APPROX 9 AM TOMORROW MORNING. WILL UPDATE IF ANY CHANGES. HOSPICE TO SET UP TRANSPORT HOME.
[2019-10-01] MEDS ORDERED: LIDOCAINE HCL 1% LOCAL INJ 20 ML VIAL ONE (14:13)
--- NOTE | 2019-10-01 14:30 | NUR ---
Pt being transferred a this time by wheelchair to radiology to have HD catheter removed. 0 s/s of acute distress noted.
[2019-10-01] MEDS ORDERED: LORAZEPAM INJ 2 MG/ML VIAL IV PRN (15:00)
--- NOTE | 2019-10-01 15:00 | NUR ---
Pt returned from radiology at this time. Pressure dressing to right chest is dry and intact.
--- NOTE | 2019-10-01 15:12 | Diagnostic Imaging Report ---
Exam: Tunnel Catheter Removal Clinical History: End-stage renal disease Complication: None immediate Procedure: The right chest was prepped and draped in usual sterile fashion. 2% lidocaine was used as local anesthetic. The tunnel catheter was removed with blunt dissection. Hemostasis was achieved. The patient tolerated the procedure well without any adverse reaction and left the department in stable condition. Impression: Successful tunnel catheter removal. Signed by: Dr. Syed Reed MD on 10/01/2019 3:09 PM
--- NOTE | 2019-10-01 18:28 | Progress Note ---
DATE: 10/01/2019 CONSULTANTS: 1. Dr. Cruz with Hematology. 2. Dr. Shah with Nephrology. 3. Dr. Craig with Urology. CHIEF COMPLAINT: Abdominal pain and acute generalized weakness due to acute on chronic anemia due to renal cell carcinoma. SUBJECTIVE: The patient is seen sitting up in a recliner. Family at bedside. We have decided to proceed with hospice care at home. Dilaudid for pain and Ativan added for anxiety. PHYSICAL EXAMINATION: VITAL SIGNS: Temperature 96.5, pulse is 111, respirations 20, blood pressure 95/51, and pulse ox is 98% on room air. GENERAL: Fatigue and generalized weakness. HEENT: Normocephalic and atraumatic. NECK: Supple. LUNGS: Clear to auscultation. CARDIOVASCULAR: Tachycardia. Regular rhythm. GASTROINTESTINAL: Distended with nausea. NEUROLOGIC: Alert, awake, and oriented x3. MUSCULOSKELETAL: Moves all extremities. SKIN: Dry. PSYCH: Calm. IMAGING DATA: KUB as of yesterday shows improvement in previously seen dilated loops of air-filled small bowel. LABORATORY DATA: WBC 13.0, hemoglobin 8.0, hematocrit 25.2, and platelets 231. IMPRESSION: 1. Acute blood loss anemia due to renal cell carcinoma status post transfusion of PRBCs 7 units total. Hemoglobin is 8.0. Hematology on the case. 2. End-stage renal disease. Due to hospice, the patient no dialysis needed. HD cath removed. Nephrology on the case. 3. Urinary tract infection with Escherichia coli and enterococcus faecalis. Levaquin renal dose. We will discontinue Levaquin due to nausea and vomiting. 4. Diabetes. Sliding scale as needed. 5. Tachycardia. Sinus tachy. We will treat nausea and pain. We will add Ativan for anxiety. 6. Benign prostatic hypertrophy. Continue Flomax. Urology on the case. 7. History of renal cell carcinoma. I have decided to proceed with home hospice. 8. Questionable ileus. KUB repeated and shows improvement. 9. Deep vein thrombosis prophylaxis. No chemical anticoagulation due to anemia. PLAN: The patient and family have agreed to proceed with hospice. Hospice has been arranged and anticipate discharge tomorrow morning once the equipments have been delivered. Dictated by Shannan Reagan, ANP [place] MD RUTH ANN Wright/IRASEMA /[id number]
--- NOTE | 2019-10-01 19:11 | NUR ---
WALKING ROUNDS PERFORMED, RECEIVED PT LAYING SEMI FOWLERS IN BED, AAOX3, RR EVEN AND NON-LABORED, O2 BY NC AT 4L. NO S/SX OF DISTRESS NOTED.LEFT PT LAYING SEMI FOWLERS IN BED, BED IN LOW LOCKED POSITION, SIDE RAILS UPX2, CALL LIGHT AND PHONE WITHIN REACH. FAMILY AT BEDSIDE.
[2019-10-01] MEDS: TAMSULOSIN HCL 0.4 MG CAP PO SCH (20:44)
--- NOTE | 2019-10-01 22:14 | Consultation ---
DATE OF CONSULTATION: 09/21/2019 HISTORY OF PRESENT ILLNESS: The patient is an 84-year-old male, referred to me for intraperitoneal bleed, history of renal cell carcinoma, and history of metastasis to the lung. The patient has had a nephrectomy. SOCIAL HISTORY: Noncontributory. FAMILY HISTORY: Noncontributory. ALLERGIES: REPORTED NONE. MEDICATIONS: At this time: 1. Ondansetron. 2. Calcitriol. 3. Dutasteride. 4. Sodium bicarbonate. 5. Protonix. 6. Flomax. 7. Docusate. 8. Magnesium hydroxide. REVIEW OF SYSTEMS: HEENT: Normal. CARDIAC: Normal. RESPIRATORY: Lung metastasis. GASTROINTESTINAL: The patient now has intraperitoneal bleed because of metastasis. GENITOURINARY: Nephrectomy for renal cell carcinoma, has been on DKI ever since now shows progression. The patient also on dialysis. PHYSICAL EXAMINATION: GENERAL: A moderately built male, very anemic, no palpable adenopathy. HEART: Within normal limits. LUNGS: Clear. ABDOMEN: Obese. RECTAL: Exam deferred. CENTRAL NERVOUS SYSTEM: Essentially normal. LABORATORY DATA: Lab shows hemoglobin of 7.5, hematocrit 23.4, white count 12,000, and platelets 226,000. Sodium 136, potassium 3.6, chloride is 94, CO2 28, BUN 38, and creatinine 5.75. Glucose is 89. INR 1.08. Bilirubin 0.6, SGOT 69, SGPT 72, and alkaline phosphatase 68. IMPRESSION: 1. Anemia of blood loss (5.1 g). 2. Iron deficiency (MCHC 30.7). 3. Congestive heart failure (BNP 14,889). 4. Hypoalbuminemia (2.7). 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 6. Hypokalemia (3.2). 7. Renal failure. 8. Hypocalcemia (8.1). 9. Renal cell carcinoma. 10. 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 12. Intraperitoneal hemorrhage. PLAN: Give him blood transfusion. I will change DKI if prognosis remains extremely poor. The patient has been followed by me. Amicar was given since he continues to bleed and gets blood transfusion. Ultrasound of the abdomen shows hemoperitoneum. I had a long family conference yesterday. The patient and the family have consented for: 1. No code. 2. Hospice. 3. I will arrange for hospice to come and see him. MD EDITH Menjivar/IRASEMA /[id number]
[2019-10-02] MEDS: SODIUM CHLORIDE 0.9% 1000ML 1,000 ML IV SCH (02:15)
[2019-10-02 04:26] VITALS: BP 96/54
--- NOTE | 2019-10-02 07:00 | NUR ---
RECEIVED PATIENT AWAKE RESTING IN BED NO S/S OF DISTRESS. BED LOW, WHEELS LOCKED, SIDE RAILS X2. CALL LIGHT IN REACH WILL CONTINUE TO MONITOR PATIENT.
[2019-10-02] MEDS: INSULIN LISPRO 100 UNIT/1 ML 3ML VIAL SQ SCH (07:30)
[2019-10-02 08:00] VITALS: BP 106/61
[2019-10-02] MEDS: CALCITRIOL 0.25 MCG CAP PO SCH (08:31)
[2019-10-02] MEDS: SODIUM BICARBONATE 650 MG TAB PO SCH (08:31)
[2019-10-02] MEDS: PANTOPRAZOLE SOD 40 MG TABEC PO SCH (08:31)
[2019-10-02 09:04] VITALS: BP 106/61
[2019-10-02] MEDS ORDERED: KEFLEX250 MG PO (09:50)
--- NOTE | 2019-10-02 10:05 | NUR ---
removed patients iv. catheter tip intact and pressure dressing applied.
[2019-10-02] MEDS: HYDROMORPHONE 1MG/1ML INJ IV PRN (10:08)
[2019-10-02] MEDS: DUTASTERIDE 0.5 MG CAP PO SCH (10:08)
--- NOTE | 2019-10-02 10:18 | NUR ---
PATIENT DISCHARGED FROM FACILITY. PATIENT GATHERED ALL PERSONAL BELONGINGS, DISCHARGE INSTRUCTIONS AND FOLLOW UP INFORMATION. PATIENT LEFT UNIT IN STRETCHER. WENT HOME VIA EMS. NO S/S OF DISTRESS WHEN LEAVING FACILITY.
--- NOTE | 2019-10-03 08:21 | Discharge Summary ---
PRIMARY CARE PHYSICIAN: Dr. Candido Celis. DISCHARGE DIAGNOSES: 1. Acute blood loss anemia due to renal cell carcinoma. 2. End stage renal disease. 3. Urinary tract infection with Escherichia coli and enterococcus faecalis. 4. Diabetes. 5. Benign prostatic hypertrophy. 6. History of renal cell carcinoma. CONSULTANTS: 1. Dr. Cruz with Hematology. 2. Dr. Shah with Nephrology. 3. Dr. Craig with Urology. PROCEDURES: Received 7 units of PRBCs. Removed HD cath. HISTORY: Per HPI. HOSPITAL COURSE: This is an 84-year-old male, who presented with abdominal pain and acute generalized weakness due to acute on chronic anemia. He received a total of 7 units of PRBCs. His oncologist, Dr. Cruz was consulted. No active bleeding noted on GI scan. He was noted to have UTI and started on Levaquin renal dose. Nephrology was consulted and underwent dialysis Monday, Monday, Monday, but due to his declining health, the patient has decided to go on home hospice. Equipments arranged and will be discharging today with hospice. PHYSICAL EXAMINATION: VITAL SIGNS: Temperature 97.0, pulse is 102, respirations 18, blood pressure 106/61, pulse ox is 100% on 4 L of nasal cannula. GENERAL: Fatigue. HEENT: Normocephalic, atraumatic. NECK: Supple. LUNGS: Clear. CARDIOVASCULAR: Tachycardia. GI: Distended with mild tenderness. NEUROLOGIC: Alert, awake, and oriented x3. MUSCULOSKELETAL: Moves all extremities. SKIN: Dry. PSYCH: Calm. CONDITION AT DISCHARGE: Stable. DISCHARGE MEDICATIONS: Please see medication reconciliation. Hospice will also follow. FOLLOWUP: Followup with hospice at home. HD catheter has been removed, so no dialysis is needed. TIME SPENT: Total time of discharge is 32 minutes. Dictated by ROBLES Sanchez Charles Frederick MD MY/MODL /[id number] cc: Candido Celis
== END 2019-10-02 10:19 | disposition hospice, home (50) | DRG 374 ==
LOC: ER 19:29 → ERHOLD 09-21 00:01 → ICU 09-21 02:08 → MED/SURG 09-23 11:55
PROVIDERS: ADMIT Internal Medicine; ATTEND Internal Medicine
PROC: 30243N1 Transfusion of Nonautologous Red Blood Cells into Central Vein, Percutaneous Approach (ICD-10-PCS; 2019-09-20)
PROC: 5A1D70Z Performance of Urinary Filtration, Intermittent, Less than 6 Hours Per Day (ICD-10-PCS; principal; 2019-09-21)
PROC: 0WP803Z Removal of Infusion Device from Chest Wall, Open Approach (ICD-10-PCS; 2019-09-21)
DX: C78.6 Secondary malignant neoplasm of retroperitoneum and peritoneum (principal); N18.6 End stage renal disease; I12.0 Hypertensive chronic kidney disease with stage 5 chronic kidney disease or end stage renal disease; C64.9 Malignant neoplasm of unspecified kidney, except renal pelvis; D62 Acute posthemorrhagic anemia; N39.0 Urinary tract infection, site not specified; N17.9 Acute kidney failure, unspecified; K56.7 Ileus, unspecified; R18.0 Malignant ascites; E11.22 Type 2 diabetes mellitus with diabetic chronic kidney disease; D63.1 Anemia in chronic kidney disease; Z99.2 Dependence on renal dialysis; R77.1 Abnormality of globulin; E83.51 Hypocalcemia; Z87.891 Personal history of nicotine dependence; E78.5 Hyperlipidemia, unspecified; Z85.118 Personal history of other malignant neoplasm of bronchus and lung; R59.0 Localized enlarged lymph nodes; B96.20 Unspecified Escherichia coli [E. coli] as the cause of diseases classified elsewhere; B95.2 Enterococcus as the cause of diseases classified elsewhere; R58 Hemorrhage, not elsewhere classified; D63.0 Anemia in neoplastic disease; Z66 Do not resuscitate
CPT/HCPCS: 36415; 36589; 71045; 74018; 74176; 74470; 76700; 78278; 80048; 80053; 81001; 82150; 82550; 82553; 82948; 83605; 83690; 83735; 83880; 84100; 84484; 85014; 85018; 85025; 85610; 85730; 86704; 86705; 86706; 86850; 86900; 86920; 87040; 87086; 87186; 87340; 87400; 90962; 93005; 96361; 96372; 97139; 99284; A9512; J1100; J1170; J1200; J1644; J1750; J1956; J2001; J2060; J2405; J7030; J7040; J7050; P9016